=== PATIENT | male | born 1965 | race Caucasian/White ===

== ENCOUNTER → 2016-07-11 | Outpatient (CLI) | payer MEDICAID ==
[2016-07-11 08:21] LABS: Basophils # (A) 0.1 k/uL (0-0.2); Basophils % (A) 1 %; CH 31.1; CHCM 34.1; Eosinophils # (A) 0.4 k/uL (0-0.7); Eosinophils % (A) 4 %; HCT 45.8 % (39.0-53.0); HDW 2.71; HGB 15.2 gm/dL (13.0-17.5); Luc # (Auto) 0.18; Luc % (Auto) 2; Lymphocytes # (A) 1.5 k/uL (1.0-4.8); Lymphocytes % (A) 15 %; MCH 30.5 pg (25.0-35.0); MCHC 33.3 g/dL (31.0-37.0); MCV 91.7 fL (80.0-100.0); Mean Platelet Volume 7.8; Monocytes # (A) 0.4 k/uL (0-1.0); Monocytes % (A) 4 %; Neutrophils # (A) 7.5 k/uL (1.3-7.7); Neutrophils % (A) 74 %; RBC 4.99 m/uL (4.30-5.90); RDW 13.4 % (11.5-15.5); WBC 10.1 k/uL (3.8-10.6); WBC (Perox) 10.33
[2016-07-11 08:42] LABS: ALT 47 U/L (21-72); AST 27 U/L (17-59); Alkaline Phosphatase 78 U/L (38-126); Anion Gap 12 mmol/L; Blood Urea Nitrogen 19 mg/dL (9-20); Calcium 9.7 mg/dL (8.4-10.2); Carbon Dioxide 29 mmol/L (22-30); Chloride 100 mmol/L (98-107); Cholesterol 122 mg/dL (<200); Glucose 148 mg/dL (74-99); HDL Cholesterol 37 mg/dL (40-60); Non-African American GFR(MDRD) >60 (>60 ml/min/1.73 sqM); Potassium 4.5 mmol/L (3.5-5.1); Sodium 141 mmol/L (137-145); Total Bilirubin 0.6 mg/dL (0.2-1.3); Total Protein 7.2 g/dL (6.3-8.2); Triglycerides 117 mg/dL (<150)
[2016-07-11 12:43] LABS: Hemoglobin A1C 7.4 % (4.2-6.1)
== END | disposition home or self-care (01) ==
LOC: LABWHC1 07:35
PROVIDERS: ATTEND Family Medicine
DX: E11.9 Type 2 diabetes mellitus without complications (principal)
CPT/HCPCS: 36415; 80053; 80061; 82043; 83036; 84443; 85025

== ENCOUNTER → 2017-05-12 | Outpatient (CLI) | payer MEDICAID ==
[2017-05-12 10:22] LABS: Basophils % (A) 0 %; CH 32.3; CHCM 35.4; Eosinophils # (A) 0.3 k/uL (0-0.7); Eosinophils % (A) 3 %; HCT 44.2 % (39.0-53.0); HGB 15.1 gm/dL (13.0-17.5); Luc # (Auto) 0.14; Luc % (Auto) 1; Lymphocytes # (A) 1.5 k/uL (1.0-4.8); Lymphocytes % (A) 15 %; MCH 31.3 pg (25.0-35.0); MCHC 34.1 g/dL (31.0-37.0); MCV 91.7 fL (80.0-100.0); Mean Platelet Volume 7.9; Monocytes # (A) 0.5 k/uL (0-1.0); Monocytes % (A) 4 %; Neutrophils # (A) 7.9 k/uL (1.3-7.7); Neutrophils % (A) 76 %; RBC 4.82 m/uL (4.30-5.90); RDW 12.8 % (11.5-15.5); WBC 10.5 k/uL (3.8-10.6); WBC (Perox) 9.67
[2017-05-12 10:48] LABS: ALT 50 U/L (21-72); AST 25 U/L (17-59); Alkaline Phosphatase 86 U/L (38-126); Anion Gap 9 mmol/L; Blood Urea Nitrogen 16 mg/dL (9-20); Calcium 9.5 mg/dL (8.4-10.2); Carbon Dioxide 30 mmol/L (22-30); Chloride 101 mmol/L (98-107); Cholesterol 156 mg/dL (<200); Glucose 159 mg/dL (74-99); HDL Cholesterol 47 mg/dL (40-60); Non-African American GFR(MDRD) >60 (>60 ml/min/1.73 sqM); Potassium 3.8 mmol/L (3.5-5.1); Sodium 140 mmol/L (137-145); Total Bilirubin 0.7 mg/dL (0.2-1.3); Total Protein 6.6 g/dL (6.3-8.2)
[2017-05-12 11:08] LABS: Appearance,Urine Clear (Clear); Bilirubin,Urine Negative (Negative); Glucose,Urine (UA) Negative (Negative); Ketones,Urine Negative (Negative); Leukocyte Esterase,Urine Negative (Negative); Mucus,Urine Few /hpf; Nitrite,Urine Negative (Negative); PH, Urine 5.5 (5.0-8.0); Particle Count 3747; Protein,Urine Trace (Negative); RBC,Urine 23 /hpf (0-5); Specific Gravity,Urine 1.021 (1.001-1.035); UA Billing (MACRO vs. MICRO) MICRO; Urobilinogen,Urine <2.0 mg/dL (<2.0); WBC,Urine 1 /hpf (0-5)
[2017-05-12 11:18] LABS: Prostate Specific Antigen 0.25 ng/mL (0.00-4.00)
[2017-05-12 15:49] LABS: Urine Creatinine 245.6 mg/dL
== END | disposition home or self-care (01) ==
LOC: LABWHC1 09:52
PROVIDERS: ATTEND Family Medicine
DX: Z00.00 Encounter for general adult medical examination without abnormal findings (principal); E11.9 Type 2 diabetes mellitus without complications
CPT/HCPCS: 36415; 80053; 80061; 81001; 82043; 82570; 83036; 84153; 84443; 85025

== ENCOUNTER → 2018-01-06 | Outpatient (CLI) | payer MEDICAID ==
--- NOTE | 2018-01-07 09:11 | CT ---
EXAMINATION TYPE: CT abdomen pelvis wo con DATE OF EXAM: 01/06/2018 HISTORY: Pre OP skin removal per patient. Abdominal and pelvic pain per order (R 10.9). CT DLP: 2899.2 mGycm. Automated Exposure Control for Dose Reduction was Utilized. TECHNIQUE: CT scan of the abdomen and pelvis is performed with oral but without IV contrast. COMPARISON: Prior CT abdomen pelvis August 06, 2013 FINDINGS: Within the limitations of a non-contrast study, the following observations are made. LUNG BASES: Focal linear scarring or atelectasis in the lingula axial image 11 is noted. LIVER/GB: Liver is diffusely low dense consistent with fatty infiltration. Somewhat contracted gallbl adder is noted. PANCREAS: Mild to moderate fat replaced atrophy at the level of the pancreatic head is present SPLEEN: No significant abnormality is seen. ADRENALS: No significant abnormality is seen. KIDNEYS: No renal calculi or hydronephrosis is evident bilaterally. BOWEL: The oral contrast does not reach level of terminal ileum. There is no suspicious small or larg e bowel dilatation seen. GENITAL ORGANS: No gross abnormality seen. LYMPH NODES: No greater than 1cm abdominal or pelvic lymph nodes are appreciated. OSSEOUS STRUCTURES: There is moderate multilevel spurring in the thoracolumbar spine. There is facet arthropathy with spur disc complexes effacing anterior thecal sac mid to lower lumbar levels. OTHER: There is curvilinear density from prior ventral wall hernia repair surgery overlying anterior abdominal wall. No recurrent hernia is evident. Vertical scarring is noted inferiorly over the pelvis . There is small fat-containing left inguinal hernia axial image 96. There are numerous surgical clips along course of the mid to distal abdominal aorta extending along r ight common iliac artery. IMPRESSION: There is evidence of prior surgery without suspicious recurrent ventral wall hernia.
== END | disposition home or self-care (01) ==
LOC: RADCTMAIN 17:55
PROVIDERS: ATTEND Surgery Plastic and Reconstructive Surgery
DX: R10.2 Pelvic and perineal pain (principal); R10.9 Unspecified abdominal pain; Z98.890 Other specified postprocedural states
CPT/HCPCS: 74176

== ENCOUNTER → 2018-02-03 | Outpatient (CLI) | payer MEDICAID ==
[2018-02-03 15:16] VITALS: BP 115/71; PULSE 57; RESP 16; TEMP 97.9; BMI 48.6
--- NOTE | 2018-02-03 15:20 | P.HPBAR ---
Bariatric H&P - History & Physicial H&P Date: 02/03/18 History & Physicial: Visit/CC: Patient initial contact: Initial weight: Initial weight in pounds: Height: Initial BMI: Last weight: Current weight: Current weight in pounds: Current BMI: [place] body weight (based on NIH guidelines): Excess body weight loss: The patient is a 52 year-old M who presents for Bariatric Assessment. HPI: He reports his highest weight of 365 pounds. He reports severe panniculitis. He comes in with insulin dependent diabetes, sleep apnea and hypertensive heart disease. He has history of multiple abdominal surgeries. He has past history of gastroesophageal reflux. ABDOMEN: Has multiple scarring along the abdomen. PLAN: 1. Bariatric labs advised 2. Psych assement pending 3. All bariatric options reviewed. He has history of scar severe scar tissue and may benefit from scar 4. CT of the abdomen pelvis Past Medical History Past Medical History: Cancer, Diabetes Mellitus, Hyperlipidemia, Hypertension, Sleep Apnea/CPAP/BIPAP Additional Past Medical History / Comment(s): Rt testicular cancer History of Any Multi-Drug Resistant Organisms: None Reported, MRSA Year Discovered:: None MDRO Source:: None Past Surgical History: Hernia Repair Additional Past Surgical History / Comment(s): 08/2013 Exploratory lap with lysis of adhesions, ventral hernia repair with mesh, excisional abdominal wall flap necrosis with wound vac and debridements, Radical orchiectomy with retroperitoneal lymph node dissection Past Anesthesia/Blood Transfusion Reactions: No Reported Reaction Additional Past Anesthesia/Blood Transfusion Reaction / Comm: Pt has never received blood. Past Psychological History: No Psychological Hx Reported Additional Psychological History / Comment(s): , works local [employer]. Participated in the local [employer] play. No current tobacco use. No alcohol use. No recent animal exposures. No experience. No recent travels. Last international travel was last year when he got in the [place]. The other wetting occurred this summer in town Smoking Status: Former smoker Past Alcohol Use History: Occasional Additional Past Alcohol Use History / Comment(s): pt quit 6 weeks ago Past Drug Use History: None Reported - Past Family History Father Family Medical History: Diabetes Mellitus, Osteoarthritis (OA) Additional Family Medical History / Comment(s): Father had war wounds, knee replacement, hernias. He at age 90yrs. Mother Family Medical History: Cancer Additional Family Medical History / Comment(s): Mother had breast cancer. She at age 86 yrs. Bariatric Checklist Checklist: Plan: Checklist: EGD: 1. Hiatal hernia: 2. H. Pylori: HgbA1c: Vitamin D: Smoking: Former smoker Primary care physician referral: Psychiatry clearance: Cardiology clearance: Sleep study: Diet journal: VTE risk score: VTE risk level: Rehab needs at discharge:
[2018-02-03 16:47] LABS: HCT 42.6 % (39.0-53.0); HGB 14.5 gm/dL (13.0-17.5); MCH 30.9 pg (25.0-35.0); MCV 90.9 fL (80.0-100.0); Mean Platelet Volume 8.4; Platelet Count 232 k/uL (150-450); RBC 4.68 m/uL (4.30-5.90); RDW 12.5 % (11.5-15.5); WBC 8.9 k/uL (3.8-10.6)
[2018-02-03 17:01] LABS: ALT 48 U/L (21-72); AST 31 U/L (17-59); Albumin 3.9 g/dL (3.5-5.0); Alkaline Phosphatase 70 U/L (38-126); Anion Gap 9 mmol/L; Blood Urea Nitrogen 20 mg/dL (9-20); Calcium 9.4 mg/dL (8.4-10.2); Carbon Dioxide 28 mmol/L (22-30); Chloride 102 mmol/L (98-107); Cholesterol 172 mg/dL (<200); Glucose 112 mg/dL (74-99); HDL Cholesterol 39 mg/dL (40-60); LDL Cholesterol,Calculated 100 mg/dL (0-99); Potassium 4.2 mmol/L (3.5-5.1); Sodium 139 mmol/L (137-145); Total Bilirubin 0.6 mg/dL (0.2-1.3); Total Protein 7.1 g/dL (6.3-8.2); Triglycerides 166 mg/dL (<150)
[2018-02-04 03:38] LABS: Iron Saturation 31.04 (15.00-50.00)
[2018-02-04 04:18] LABS: Hemoglobin A1C 7.1 % (4.0-6.0)
[2018-02-04 04:35] LABS: Folate, Serum 22.1 ng/mL; Vitamin D 25 Hydroxy 13.5 ng/mL (30.0-100.0)
== END | disposition home or self-care (01) ==
LOC: BARWHC3 13:40
PROVIDERS: ATTEND Surgery Plastic and Reconstructive Surgery
DX: M79.3 Panniculitis, unspecified (principal); E11.9 Type 2 diabetes mellitus without complications; G47.30 Sleep apnea, unspecified; I11.9 Hypertensive heart disease without heart failure; E89.1 Postprocedural hypoinsulinemia; E88.81 Metabolic syndrome and other insulin resistance; D50.9 Iron deficiency anemia, unspecified; E44.0 Moderate protein-calorie malnutrition; E55.9 Vitamin D deficiency, unspecified; E66.01 Morbid (severe) obesity due to excess calories; Z68.42 Body mass index [BMI] 45.0-49.9, adult; Z79.4 Long term (current) use of insulin; Z87.891 Personal history of nicotine dependence; Z98.890 Other specified postprocedural states
CPT/HCPCS: 36415; 80053; 80061; 80323; 82306; 82607; 82728; 82746; 83036; 83540; 83550; 84425; 84443; 85027; 93005; 99201

== ENCOUNTER → 2018-04-19 | Outpatient (CLI) | payer MEDICAID ==
[2018-04-19 11:27] LABS: HCT 44.3 % (39.0-53.0); HGB 14.6 gm/dL (13.0-17.5); MCH 30.1 pg (25.0-35.0); MCHC 32.9 g/dL (31.0-37.0); MCV 91.6 fL (80.0-100.0); Mean Platelet Volume 7.7; Platelet Count 252 k/uL (150-450); RBC 4.83 m/uL (4.30-5.90); RDW 12.7 % (11.5-15.5)
[2018-04-19 16:28] LABS: Albumin 4.1 g/dL (3.80-4.90); Albumin/Globulin Ratio 1.95 (1.20-2.10); Anion Gap 6.8 mmol/L (4.00-12.00); Calcium 9.3 mg/dL (8.7-10.3); Carbon Dioxide 29.2 mmol/L (21.6-31.8); Globulin 2.1 g/dL (2.1-3.7); LDL Cholesterol,Calculated 80.6 mg/dL (0.0-131.0); Potassium 4.5 mmol/L (3.5-5.5); Total Bilirubin 0.6 mg/dL (0.3-1.2); Total Protein 6.2 g/dL (6.2-8.2); VLDL Calculation 16.4 mg/dL (5.00-40.00)
[2018-04-19 23:36] LABS: Hemoglobin A1C 7.2 % (4.0-6.0)
== END | disposition home or self-care (01) ==
LOC: LABWHC1 10:09
PROVIDERS: ATTEND Family Medicine
DX: Z00.00 Encounter for general adult medical examination without abnormal findings (principal); E11.65 Type 2 diabetes mellitus with hyperglycemia
CPT/HCPCS: 36415; 80053; 80061; 83036; 84153; 85027

== ENCOUNTER 2018-04-21 10:23 | Day surgery (SDC) | payer MEDICAID ==
[2018-04-20 10:01] VITALS: BMI 48.0
--- NOTE | 2018-04-21 08:48 | P.GSHP ---
History of Present Illness H&P Date: 04/21/18 CHIEF COMPLAINT: GERD HISTORY OF PRESENT ILLNESS: The patient is a 53-year-old male who presents reports gastroesophageal reflux disease. Upper endoscopy was offered for further evaluation and management. PAST MEDICAL HISTORY: Please see list. PAST SURGICAL HISTORY: Please see list. MEDICATIONS: Please see list. ALLERGIES: Please see list. SOCIAL HISTORY: No illicit drug use FAMILY HISTORY: No reports of Crohn disease or ulcerative colitis. REVIEW OF ORGAN SYSTEMS: CONSTITUTIONAL: No reports of fevers or chills. GI: Denies any blood in stools or constipation. PHYSICAL EXAM: VITAL SIGNS: Stable GENERAL: Well-developed and pleasant in no acute distress. HEENT: No scleral icterus. Extraocular movements grossly intact. Moist buccal mucosa. NECK: Supple without lymphadenopathy. CHEST: Unlabored respirations. Equal bilateral excursions. CARDIOVASCULAR: Regular rate and rhythm. Distal 2+ pulses. ABDOMEN: Soft, nondistended. MUSCULOSKELETAL: No clubbing, cyanosis, or edema. ASSESSMENT: 1. Gastroesophageal reflux disease PLAN: 1. Recommend proceeding with an upper endoscopy Past Medical History Past Medical History: Cancer, Diabetes Mellitus, Hyperlipidemia, Hypertension, Sleep Apnea/CPAP/BIPAP Additional Past Medical History / Comment(s): Rt testicular cancer History of Any Multi-Drug Resistant Organisms: None Reported, MRSA Date of last positivie culture/infection: None MDRO Source:: None Past Surgical History: Hernia Repair Additional Past Surgical History / Comment(s): 08/2013 Exploratory lap with lysis of adhesions, ventral hernia repair with mesh, excisional abdominal wall flap necrosis with wound vac and debridements, Radical orchiectomy with retroperitoneal lymph node dissection Past Anesthesia/Blood Transfusion Reactions: No Reported Reaction Additional Past Anesthesia/Blood Transfusion Reaction / Comment(s): Pt has never received blood. Smoking Status: Former smoker - Past Family History Father Family Medical History: Diabetes Mellitus, Osteoarthritis (OA) Additional Family Medical History / Comment(s): Father had war wounds, knee replacement, hernias. He at age 90yrs. Mother Family Medical History: Cancer Additional Family Medical History / Comment(s): Mother had breast cancer. Medications and Allergies Home Medications Medication Instructions Recorded Confirmed Type Aspirin EC [Ecotrin Low Dose] 81 mg PO DAILY 04/30/16 04/20/18 History Lisinopril [Zestril] 2.5 mg PO DAILY 04/30/16 04/20/18 History metFORMIN HCL [Glucophage] 1,000 mg PO BID #60 tab 05/05/16 04/20/18 Rx Atorvastatin Calcium [Lipitor] 20 mg PO HS 04/20/18 04/20/18 History Citalopram Hydrobromide [CeleXA] 20 mg PO HS 04/20/18 04/20/18 History Furosemide [Lasix] 10 mg PO DAILY 04/20/18 04/20/18 History Insulin Glargine [Lantus] 43 unit SQ HS 04/20/18 04/20/18 History Insulin Lispro [humaLOG Kwikpen] 7 unit SQ AC-TID 04/20/18 04/20/18 History Vitamin B Complex 1 each PO DAILY 04/20/18 04/20/18 History Allergies Allergy/AdvReac Type Severity Reaction Status Date / Time No Known Allergies Allergy Verified 04/20/18 09:22
[~2018-04-21 10:23] MED LIST: LACTATED RINGERS 1,000 ML IV SCH; LIDOCAINE 1% 20 ML VIAL (10MG/ML) FOR IV START INTRADERMA PRN
[2018-04-21 11:05] VITALS: TEMP 97.8
[2018-04-21] MEDS ORDERED: PROPOFOL 10 MG/ML 20 ML VIAL IV ONE (11:22)
[2018-04-21 11:23] LABS: Glucose,Whole Blood 162 mg/dL (75-99)
--- NOTE | 2018-04-21 11:44 | P.OP ---
Date of Procedure: 04/21/18 Description of Procedure: PREOPERATIVE DIAGNOSIS: Gastroesophageal reflux disease. Morbid obesity. POSTOPERATIVE DIAGNOSIS: Morbid obesity. Gastritis. Duodenitis Esophagitis Gastroesophageal reflux disease. Diaphragmatic hiatal hernia OPERATION: Esophagogastroduodenoscopy with biopsies along antrum, duodenum, and distal esophagus SURGEON: Betty Escobar MD ANESTHESIA: MAC. INDICATIONS: The patient is a 53-year-old male who presents with a history of reflux disease. Benefits and risks of the procedure were described. Informed consent was obtained. DESCRIPTION: The patient was brought into the endoscopy suite and laid in the left lateral decubitus position. An Olympus gastroscope was passed along the posterior oropharynx down to the distal esophagus where the squamocolumnar junction was encountered at 38 cm from the incisors. The stomach was entered and no bile reflux was found. Additional findings are listed below. Biopsies with cold forceps were obtained of the antrum. The first through third portion of the duodenum was examined and unremarkable. Retroflexion of the scope confirmed Hill grade 3 lower esophageal valve. The squamocolumnar junction demonstrated LA grade D erosive esophagitis. The stomach was desufflated. The patient tolerated the procedure well. FINDINGS: Squamocolumnar junction 38 cm from the incisors. Diaphragmatic hiatus at 40 cm. Hiatal hernia, 2 cm Hill grade 3 lower esophageal valve. LA grade D erosive esophagitis. Active duodenitis. Chronic gastritis RECOMMENDATIONS: Upper endoscopy in 3 years, 2020 for esophagitis Plan - Discharge Summary New Discharge Prescriptions: New Omeprazole 40 mg PO DAILY #14 capsule.dr No Action Aspirin EC [Ecotrin Low Dose] 81 mg PO DAILY Lisinopril [Zestril] 2.5 mg PO DAILY metFORMIN HCL [Glucophage] 1,000 mg PO BID #60 tab Insulin Lispro [humaLOG Kwikpen] 7 unit SQ AC-TID Insulin Glargine [Lantus] 43 unit SQ HS Atorvastatin Calcium [Lipitor] 20 mg PO HS Furosemide [Lasix] 10 mg PO DAILY Citalopram Hydrobromide [CeleXA] 20 mg PO HS Vitamin B Complex 1 each PO DAILY Discharge Medication List Aspirin EC [Ecotrin Low Dose] 81 mg PO DAILY 04/30/16 [History] Lisinopril [Zestril] 2.5 mg PO DAILY 04/30/16 [History] metFORMIN HCL [Glucophage] 1,000 mg PO BID #60 tab 05/05/16 [Rx] Atorvastatin Calcium [Lipitor] 20 mg PO HS 04/20/18 [History] Citalopram Hydrobromide [CeleXA] 20 mg PO HS 04/20/18 [History] Furosemide [Lasix] 10 mg PO DAILY 04/20/18 [History] Insulin Glargine [Lantus] 43 unit SQ HS 04/20/18 [History] Insulin Lispro [humaLOG Kwikpen] 7 unit SQ AC-TID 04/20/18 [History] Vitamin B Complex 1 each PO DAILY 04/20/18 [History] Omeprazole 40 mg PO DAILY #14 capsule. 04/21/18 [Rx] Follow up Appointment(s)/Referral(s): [facility] [NON-STAFF] - 05/26/18 Patient Instructions/Handouts: *[facility] - (Anesthesia) Endoscopy Discharge Instructions, Upper Endoscopy (DC), Duodenitis (DC), Gastritis (DC), Diet for Stomach Ulcers and Gastritis (ED) Discharge Disposition: HOME SELF-CARE
[2018-04-21 11:46] VITALS: RESP 18
[2018-04-21 12:00] VITALS: BP 115/70; PULSE 50
== END 2018-04-21 12:36 | disposition home or self-care (01) ==
LOC: ORWHC2ENDO 10:23
PROVIDERS: ATTEND Surgery Plastic and Reconstructive Surgery
DX: K29.50 Unspecified chronic gastritis without bleeding (principal); K29.80 Duodenitis without bleeding; K21.0 Gastro-esophageal reflux disease with esophagitis; K22.10 Ulcer of esophagus without bleeding; K44.9 Diaphragmatic hernia without obstruction or gangrene; E66.01 Morbid (severe) obesity due to excess calories; Z68.42 Body mass index [BMI] 45.0-49.9, adult; E11.9 Type 2 diabetes mellitus without complications; E78.5 Hyperlipidemia, unspecified; I10 Essential (primary) hypertension; F32.9 Major depressive disorder, single episode, unspecified; G47.33 Obstructive sleep apnea (adult) (pediatric); Z99.89 Dependence on other enabling machines and devices; Z79.82 Long term (current) use of aspirin; Z79.4 Long term (current) use of insulin; Z79.899 Other long term (current) drug therapy; Z90.79 Acquired absence of other genital organ(s); Z85.47 Personal history of malignant neoplasm of testis; Z86.14 Personal history of Methicillin resistant Staphylococcus aureus infection; Z87.891 Personal history of nicotine dependence
CPT/HCPCS: 88305; 43239; J2704

== ENCOUNTER → 2018-05-26 | Outpatient (CLI) | payer MEDICAID ==
--- NOTE | 2018-05-26 15:40 | P.PN ---
Subjective Progress Note Date: 05/26/18 DATE OF SERVICE: 05/26/2018 CHIEF COMPLAINT: Bariatric evaluation. HISTORY OF PRESENT ILLNESS: Clint Valle is a 53-year-old male who comes in with long-standing morbid obesity. He comes in looking into weight loss surgery. He is looking into surgery to help his diabetes. He has history of multiple abdominal surgeries. At height of 5 feet 9.5 inches, his ideal body weight is 168 pounds. He comes in 336 pounds from 334 pounds, 3 months. He gained 2 pounds in 4 months. His highest weight was 365 pounds. His body mass index highest was 53.2 down to 49.1. He is 168 pounds overweight. PAST MEDICAL HISTORY: 1. Morbid obesity due to excess calories 2. Body mass index of 53.2, initial 3. Osteoarthritis of the knees. 4. Osteoarthritis of the lower back. 5. Hypertensive heart disease. 6. Gastroesophageal reflux disease 7. Hyperlipidemia 8. Obstructive sleep apnea 9. Testicular cancer 10. Panniculitis 11. Diabetes type 2, insulin-dependent PAST SURGICAL HISTORY: 1. Exploratory laparotomy lysis of adhesions 2. Complex abdominal wall reconstruction 3. Orchiectomy lymphadenectomy HOME MEDICATIONS: ALLERGIES: Home Medications Medication Instructions Recorded Confirmed Type Aspirin EC [Ecotrin Low Dose] 81 mg PO DAILY 04/30/16 02/04/18 History Lisinopril [Zestril] 2.5 mg PO DAILY 04/30/16 02/04/18 History Atorvastatin Calcium [Lipitor] 20 mg PO DAILY #30 tab 05/05/16 02/04/18 Rx Cefuroxime Axetil [Ceftin] 500 mg PO BID #14 tab 05/05/16 02/04/18 Rx INSULIN LISPRO (humaLOG) [humaLOG] 6 unit SQ AC-TID #1 vial 05/05/16 02/04/18 Rx Insulin Glargine [Lantus] 24 unit SQ HS #1 vial 05/05/16 02/04/18 Rx Nystatin 100,000Unit/gm Cream 1 applic TOPICAL TID applic 05/05/16 02/04/18 Rx [Mycostatin Cream] SILVER sulfADIAZINE Cream 1 applic TOPICAL BID applic 05/05/16 02/04/18 Rx [Silvadene 1% Cream] metFORMIN HCL [Glucophage] 1,000 mg PO BID #60 tab 12/19/16 09/20/18 Rx Allergies Allergy/AdvReac Type Severity Reaction Status Date / Time No Known Allergies Allergy Verified 02/04/18 10:05 SOCIAL HISTORY: Past tobacco use. FAMILY HISTORY: No family history of ulcerative colitis disease or Crohn's disease. Family history of morbid obesity. No lupus in the family. No reports of stomach or esophageal cancer. Has family history of diabetes REVIEW OF ORGAN SYSTEMS: CONSTITUTIONAL: At height of 5 feet 9.5 inches, his ideal body weight is 168 pounds. He comes in 338 pounds. His highest weight was 365 pounds. His body mass index highest was 53.2. Today his BMI is 48.7. He is 166 pounds overweight. HEENT: Denies any active troubles with vision or hearing. No troubles with swallowing. ENDOCRINE: Has diabetes. No hypothyroidism. CARDIOVASCULAR: No reports of palpitations or heart attacks or chest pain. RESPIRATORY: Has daytime somnolence. No asthma. GI: Denies any bright red blood per rectum. No diarrhea. No constipation. MUSCULOSKELETAL: Has lower back pain and joint pain. Has osteoarthritis of the knees. NEURO: No headaches. No seizure disorders. PSYCH: No depression. No suicidal ideation. RHEUMATOLOGIC: No lupus. No rheumatoid arthritis. HEMATOLOGIC: Denies any abnormal bleeding or bruising. No personal history of DVTs. SKIN: No rash. No skin cancer. Has panniculitis PHYSICAL EXAM: VITAL SIGNS: Height 5 foot 9.5 inches, weight 336 pounds. BMI 49.1 Vital Signs Temp 97.4 F L 05/26/18 15:00 Pulse 60 05/26/18 15:00 Resp BP 118/75 05/26/18 15:00 Pulse Ox GENERAL: Well-developed in no acute distress. HEENT: No scleral icterus. Extraocular movements grossly intact. Hears conversational speech. No nasal drainage. NECK: Supple without lymphadenopathy. CHEST: Nonlabored respirations with equal bilateral excursions. CARDIOVASCULAR: Regular rate and regular rhythm. Distal 2+ pulses. ABDOMEN: Has multiple scarring along the abdomen. Soft, nontender, nondistended. Has moderate-sized pannus. Midline incision MUSCULOSKELETAL: No clubbing, cyanosis. Gross strength 5/5 distal lower extremities. NEURO: No focal or lateralizing signs. Cranial nerves 2 through 12 grossly within normal limits. PSYCH: Appropriate affect. Alert and oriented to person, place and time. SKIN: Good skin turgor. Well perfused. LABS: Reviewed Hgb A1C less than 8.0 EGD STUDIES FINDINGS: Squamocolumnar junction 38 cm from the incisors. Diaphragmatic hiatus at 40 cm. Hiatal hernia, 2 cm Hill grade 3 lower esophageal valve. LA grade D erosive esophagitis. Active duodenitis. Chronic gastritis Final Pathologic Diagnosis A. GASTRIC ANTRUM, BIOPSY: Mild chronic gastritis. Helicobacter pylori organisms are not identified on routine H+E sections. B. DISTAL ESOPHAGUS, BIOPSY: Benign glandular mucosa with intestinal metaplasia, chronic inflammation and mucosal reactive changes. Negative for dysplasia. See note. C. DUODENUM, BIOPSY: Chronic duodenitis with mild villous atrophy. ASSESSMENT: 1. Morbid obesity due to excess calories 2. Body mass index of 53.2, initial 3. Osteoarthritis of the knees. 4. Osteoarthritis of the lower back. 5. Hypertensive heart disease. 6. Gastroesophageal reflux disease 7. Hyperlipidemia 8. Obstructive sleep apnea 9. Testicular cancer 10. Panniculitis 11. Diabetes type 2, insulin-dependent PLAN: 1. Upper endoscopy reviewed demonstrating moderate reflux. His reports improvement of his symptoms with Omeprazole 2. He is looking into the gastric bypass however a sleeve is preferred with the multiple abdominal surgeries. 3. He is pending cardiac clearance and seeing a trimmer machine 4. Continue with Omeprazole 5. He is at high risk for scar tissue and lysis of adhesions were described. 6. Labs were also reviewed.
[2018-05-28 14:49] VITALS: BP 118/75; PULSE 60; TEMP 97.4; BMI 49.0
== END | disposition home or self-care (01) ==
LOC: BARWHC3 13:37
PROVIDERS: ATTEND Surgery Plastic and Reconstructive Surgery
DX: E66.01 Morbid (severe) obesity due to excess calories (principal); M17.0 Bilateral primary osteoarthritis of knee; I11.9 Hypertensive heart disease without heart failure; K21.9 Gastro-esophageal reflux disease without esophagitis; E78.5 Hyperlipidemia, unspecified; G47.33 Obstructive sleep apnea (adult) (pediatric); C62.90 Malignant neoplasm of unspecified testis, unspecified whether descended or undescended; E11.9 Type 2 diabetes mellitus without complications; M79.3 Panniculitis, unspecified; Z79.4 Long term (current) use of insulin; Z79.82 Long term (current) use of aspirin; Z79.899 Other long term (current) drug therapy; Z79.84 Long term (current) use of oral hypoglycemic drugs; Z79.2 Long term (current) use of antibiotics; Z68.43 Body mass index [BMI] 50.0-59.9, adult; Z72.0 Tobacco use
CPT/HCPCS: 99211

== ENCOUNTER 2018-08-30 01:37 | Emergency (ER) | payer MEDICAID ==
[2018-08-30 01:44] VITALS: TEMP 98.2
[2018-08-30] MEDS ORDERED: MORPHINE SULFATE 4 MG/ML SYRINGE IV STA (02:02)
[2018-08-30] MEDS ORDERED: ONDANSETRON 4 MG/2 ML VIAL IVP STA (02:02)
--- NOTE | 2018-08-30 02:48 | ED ---
General Adult HPI - General Source: patient, family, RN notes reviewed Mode of arrival: ambulatory Limitations: no limitations <Wili Hua - Last Filed: 08/30/18 04:16> <Halie Booth - Last Filed: 08/30/18 05:56> - General Chief complaint: Abdominal Pain Stated complaint: Abdominal Pain Time Seen by Provider: 08/30/18 01:52 - History of Present Illness Initial comments: 53-year-old male with a past medical history of testicular cancer, diabetes mellitus, hyperlipidemia, hypertension, multiple abdominal surgeries presents to the emergency determine for chief complaint of upper abdominal pain. Patient states this pain started across his back a few hours ago and now is in his upper abdomen. States this feels exactly how it feels when he develops a hernia which he has expressed multiple times before. Patient did vomit 3 times as well. Patient has no other complaints at this time including shortness of breath, chest pain, headache, or visual changes. (Wili Hua) I was available for consultation in the emergency department. The history and physical exam were done by the midlevel provider. I was consulted for this patient's care. I reviewed the case with the midlevel provider and based on their presentation of the patient, I agree with the assessment, medical decision making and plan of care as documented. (Halie Booth) - Related Data Home Medications Medication Instructions Recorded Confirmed Aspirin EC [Ecotrin Low Dose] 81 mg PO DAILY 04/30/16 05/26/18 Lisinopril [Zestril] 2.5 mg PO DAILY 04/30/16 05/26/18 Atorvastatin Calcium [Lipitor] 20 mg PO HS 04/20/18 05/26/18 Citalopram Hydrobromide [CeleXA] 20 mg PO HS 04/20/18 05/26/18 Furosemide [Lasix] 10 mg PO DAILY 04/20/18 05/26/18 Insulin Glargine [Lantus] 43 unit SQ HS 04/20/18 05/26/18 Insulin Lispro [humaLOG Kwikpen] 7 unit SQ AC-TID 04/20/18 05/26/18 Vitamin B Complex 1 each PO DAILY 04/20/18 05/26/18 Previous Rx's Medication Instructions Recorded metFORMIN HCL [Glucophage] 1,000 mg PO BID #60 tab 05/05/16 Omeprazole 40 mg PO DAILY #14 capsule. 04/21/18 HYDROcodone/APAP 5-325MG [[place] 1 tab PO Q6HR PRN #10 tab 08/30/18 5-325] Ondansetron [Zofran ODT] 4 mg PO Q8HR PRN #15 tab 08/30/18 Tamsulosin [Flomax] 0.4 mg PO DAILY #10 cap 08/30/18 Allergies Allergy/AdvReac Type Severity Reaction Status Date / Time No Known Allergies Allergy Verified 08/30/18 01:44 Review of Systems ROS Other: All systems not noted in ROS Statement are negative. <Wili Hua P - Last Filed: 08/30/18 04:16> ROS Other: All systems not noted in ROS Statement are negative. <Halie Booth P - Last Filed: 08/30/18 05:56> ROS Statement: Those systems with pertinent positive or pertinent negative responses have been documented in the HPI. Past Medical History Past Medical History: Cancer, Diabetes Mellitus, Hyperlipidemia, Hypertension, Sleep Apnea/CPAP/BIPAP Additional Past Medical History / Comment(s): Rt testicular cancer History of Any Multi-Drug Resistant Organisms: None Reported, MRSA Date of last positivie culture/infection: None MDRO Source:: None Past Surgical History: Hernia Repair Additional Past Surgical History / Comment(s): 08/2013 Exploratory lap with lysis of adhesions, ventral hernia repair with mesh, excisional abdominal wall flap necrosis with wound vac and debridements, Radical orchiectomy with retroperitoneal lymph node dissection Past Anesthesia/Blood Transfusion Reactions: No Reported Reaction Additional Past Anesthesia/Blood Transfusion Reaction / Comment(s): Pt has never received blood. Past Psychological History: No Psychological Hx Reported Smoking Status: Former smoker Past Alcohol Use History: Occasional Past Drug Use History: None Reported - Past Family History Father Family Medical History: Diabetes Mellitus, Osteoarthritis (OA) Additional Family Medical History / Comment(s): Father had war wounds, knee replacement, hernias. He at age 90yrs. Mother Family Medical History: Cancer Additional Family Medical History / Comment(s): Mother had breast cancer. <Wili Hua P - Last Filed: 08/30/18 04:16> General Exam Limitations: no limitations General appearance: alert, in no apparent distress Head exam: Present: atraumatic, normocephalic, normal inspection Eye exam: Present: normal appearance, PERRL, EOMI. Absent: scleral icterus, conjunctival injection, periorbital swelling ENT exam: Present: normal exam, mucous membranes moist Neck exam: Present: normal inspection, full ROM. Absent: tenderness, meningismus, lymphadenopathy Respiratory exam: Present: normal lung sounds bilaterally. Absent: respiratory distress, wheezes, rales, rhonchi, stridor Cardiovascular Exam: Present: regular rate, normal rhythm, normal heart sounds. Absent: systolic murmur, diastolic murmur, rubs, gallop, clicks GI/Abdominal exam: Present: soft, tenderness (Minimal generalized upper abdominal tenderness), normal bowel sounds. Absent: distended, guarding, rebound, rigid Back exam: Absent: CVA tenderness (R), CVA tenderness (L) Neurological exam: Present: alert, oriented X3, CN II-XII intact Psychiatric exam: Present: normal affect, normal mood <Wili Hua P - Last Filed: 08/30/18 04:16> Course <Wili Hua P - Last Filed: 08/30/18 04:16> Vital Signs 08/30/18 08/30/18 01:41 04:08 Temperature 98.2 F Pulse Rate 71 66 Respiratory 24 17 Rate Blood Pressure 177/95 123/66 O2 Sat by Pulse 96 96 Oximetry - Reevaluation(s) Reevaluation #1: 08/30/18 03:55 Patient reevaluated at this time, stating his pain is completely resolved. Patient is feeling much better, does not want any additional pain medication. (Wili Hua) Medical Decision Making - Lab Data Result diagrams: 08/30/18 02:30 08/30/18 02:30 <Wili Hua P - Last Filed: 08/30/18 04:16> - Lab Data Result diagrams: 08/30/18 02:30 08/30/18 02:30 <Halie Booth P - Last Filed: 08/30/18 05:56> - Medical Decision Making 53-year-old male presents to the emergency department for chief back pain and abdominal pain. Patient states this started as a back pain in the center his back and then became and abdominal pain. Patient has had extensive abdominal surgeries. Minimal abdominal tenderness on exam. No CVA tenderness. CBC unremarkable. CMP does show a creatinine of 1.3, patient given fluids. Patient does have a glucose of 271, history of diabetes. CT abdomen and pelvis shows a left distal ureteral 5 mm calculus with mild to moderate left hydroureter or hydronephrosis and delayed nephrogram. Mild left perinephric stranding/edema may be related to calculus although recommended clinical correlation in correlation with urinalysis. Urinalysis has moderate blood however no evidence of infection. Patient will be given perception of her pain medicine as well as Zofran and Flomax. Will follow up with urology in 1-2 days. Discussed return parameters including intractable pain or inability to tolerate by mouth intake. (Wili Hua) - Lab Data Lab Results 08/30/18 08/30/18 08/30/18 Range/Units 02:30 02:30 02:30 WBC 10.1 (3.8-10.6) k/uL RBC 5.02 (4.30-5.90) m/uL Hgb 15.0 (13.0-17.5) gm/dL Hct 44.4 (39.0-53.0) % MCV 88.5 (80.0-100.0) fL MCH 30.0 (25.0-35.0) pg MCHC 33.9 (31.0-37.0) g/dL RDW 12.7 (11.5-15.5) % Plt Count 232 (150-450) k/uL Neutrophils % 75 % Lymphocytes % 14 % Monocytes % 6 % Eosinophils % 3 % Basophils % 0 % Neutrophils # 7.6 (1.3-7.7) k/uL Lymphocytes # 1.4 (1.0-4.8) k/uL Monocytes # 0.6 (0-1.0) k/uL Eosinophils # 0.3 (0-0.7) k/uL Basophils # 0.0 (0-0.2) k/uL PT (9.0-12.0) sec INR (<1.2) APTT (22.0-30.0) sec Sodium 138 (137-145) mmol/L Potassium 4.3 (3.5-5.1) mmol/L Chloride 101 (98-107) mmol/L Carbon Dioxide 29 (22-30) mmol/L Anion Gap 8 mmol/L BUN 21 H (9-20) mg/dL Creatinine 1.34 H (0.66-1.25) mg/dL Est GFR (CKD-EPI)AfAm 71 (>60 ml/min/1.73 sqM) Est GFR (CKD-EPI)NonAf 61 (>60 ml/min/1.73 sqM) Glucose 271 H (74-99) mg/dL Plasma Lactic Acid Trey 1.4 (0.7-2.0) mmol/L Calcium 9.5 (8.4-10.2) mg/dL Magnesium 1.6 (1.6-2.3) mg/dL Total Bilirubin 0.4 (0.2-1.3) mg/dL AST 26 (17-59) U/L ALT 41 (21-72) U/L Alkaline Phosphatase 98 (38-126) U/L Troponin I (0.000-0.034) ng/mL Total Protein 6.9 (6.3-8.2) g/dL Albumin 4.0 (3.5-5.0) g/dL Amylase 63 (30-110) U/L Lipase 125 (23-300) U/L Urine Color Urine Appearance (Clear) Urine pH (5.0-8.0) Ur Specific [place] (1.001-1.035) Urine Protein (Negative) Urine Glucose (UA) (Negative) Urine Ketones (Negative) Urine Blood (Negative) Urine Nitrite (Negative) Urine Bilirubin (Negative) Urine Urobilinogen (<2.0) mg/dL Ur Leukocyte Esterase (Negative) Urine RBC (0-5) /hpf Urine WBC (0-5) /hpf Ur Squamous Epith Cells (0-4) /hpf Urine Mucus (None) /hpf 08/30/18 08/30/18 08/30/18 Range/Units 02:30 02:30 03:59 WBC (3.8-10.6) k/uL RBC (4.30-5.90) m/uL Hgb (13.0-17.5) gm/dL Hct (39.0-53.0) % MCV (80.0-100.0) fL MCH (25.0-35.0) pg MCHC (31.0-37.0) g/dL RDW (11.5-15.5) % Plt Count (150-450) k/uL Neutrophils % % Lymphocytes % % Monocytes % % Eosinophils % % Basophils % % Neutrophils # (1.3-7.7) k/uL Lymphocytes # (1.0-4.8) k/uL Monocytes # (0-1.0) k/uL Eosinophils # (0-0.7) k/uL Basophils # (0-0.2) k/uL PT 9.8 (9.0-12.0) sec INR 0.9 (<1.2) APTT 24.0 (22.0-30.0) sec Sodium (137-145) mmol/L Potassium (3.5-5.1) mmol/L Chloride (98-107) mmol/L Carbon Dioxide (22-30) mmol/L Anion Gap mmol/L BUN (9-20) mg/dL Creatinine (0.66-1.25) mg/dL Est GFR (CKD-EPI)AfAm (>60 ml/min/1.73 sqM) Est GFR (CKD-EPI)NonAf (>60 ml/min/1.73 sqM) Glucose (74-99) mg/dL Plasma Lactic Acid Trey (0.7-2.0) mmol/L Calcium (8.4-10.2) mg/dL Magnesium (1.6-2.3) mg/dL Total Bilirubin (0.2-1.3) mg/dL AST (17-59) U/L ALT (21-72) U/L Alkaline Phosphatase (38-126) U/L Troponin I <0.012 (0.000-0.034) ng/mL Total Protein (6.3-8.2) g/dL Albumin (3.5-5.0) g/dL Amylase (30-110) U/L Lipase (23-300) U/L Urine Color Yellow Urine Appearance Clear (Clear) Urine pH 5.5 (5.0-8.0) Ur Specific [place] 1.050 H (1.001-1.035) Urine Protein Trace H (Negative) Urine Glucose (UA) 4+ H (Negative) Urine Ketones Trace H (Negative) Urine Blood Moderate H (Negative) Urine Nitrite Negative (Negative) Urine Bilirubin Negative (Negative) Urine Urobilinogen <2.0 (<2.0) mg/dL Ur Leukocyte Esterase Negative (Negative) Urine RBC 31 H (0-5) /hpf Urine WBC 2 (0-5) /hpf Ur Squamous Epith Cells <1 (0-4) /hpf Urine Mucus Rare H (None) /hpf Disposition Is patient prescribed a controlled substance at d/c from ED?: Yes When asked, does pt state using other controlled substances?: No If prescribed controlled substance>3 days was MAPS reviewed?: Prescribed <3 Days If opioid is for acute pain is fill amount 7 days or less?: Yes If Rx opioid, was Start Talking consent form obtained?: Yes Time of Disposition: 04:17 <Wili Hua P - Last Filed: 08/30/18 04:16> <Halie Booth P - Last Filed: 08/30/18 05:56> Clinical Impression: Ureterolithiasis Disposition: HOME SELF-CARE Condition: Good Instructions (If sedation given, give patient instructions): Kidney Stones (ED) Additional Instructions: Please take [place] for pain. Take Zofran as needed for nausea. Take Flomax as directed. Follow up with urology in 1-2 days. Return here to the emergency department if you have any worsening symptoms, intolerable pain, or cannot tolerate oral intake. Prescriptions: Tamsulosin [Flomax] 0.4 mg PO DAILY #10 cap HYDROcodone/APAP 5-325MG [[place] 5-325] 1 tab PO Q6HR PRN #10 tab PRN Reason: Pain Ondansetron [Zofran ODT] 4 mg PO Q8HR PRN #15 tab PRN Reason: Nausea Referrals: Deric Aguirre MD [Primary Care Provider] - 1-2 days Claus Phillip MD [STAFF PHYSICIAN] - 1-2 days
[2018-08-30 02:49] LABS: Basophils % (A) 0 %; Eosinophils # (A) 0.3 k/uL (0-0.7); Eosinophils % (A) 3 %; HCT 44.4 % (39.0-53.0); Lymphocytes # (A) 1.4 k/uL (1.0-4.8); Lymphocytes % (A) 14 %; MCHC 33.9 g/dL (31.0-37.0); MCV 88.5 fL (80.0-100.0); Mean Platelet Volume 8.3; Monocytes # (A) 0.6 k/uL (0-1.0); Monocytes % (A) 6 %; Neutrophils # (A) 7.6 k/uL (1.3-7.7); Neutrophils % (A) 75 %; Platelet Count 232 k/uL (150-450); RBC 5.02 m/uL (4.30-5.90); RDW 12.7 % (11.5-15.5); WBC 10.1 k/uL (3.8-10.6)
[2018-08-30 02:57] LABS: INR 0.9 (<1.2); Prothrombin Time 9.8 sec (9.0-12.0)
[2018-08-30 03:02] LABS: Calcium 9.5 mg/dL (8.4-10.2); Magnesium 1.6 mg/dL (1.6-2.3); Potassium 4.3 mmol/L (3.5-5.1); Total Bilirubin 0.4 mg/dL (0.2-1.3); Total Protein 6.9 g/dL (6.3-8.2)
[2018-08-30] MEDS ORDERED: SODIUM CHLORIDE 0.9% 500 ML 500 ML IV STA (03:03)
--- NOTE | 2018-08-30 03:55 | CT ---
EXAM: CT Abdomen and Pelvis With Intravenous Contrast CLINICAL HISTORY: Pain. Left flank pain. TECHNIQUE: Axial computed tomography images of the abdomen and pelvis with intravenous contrast. Coronal and sagittal reformatted images were created and reviewed. CTDI is 63.18 mGy and DLP is 2946 mGy-cm. This CT exam was performed using one or more of the following dose reduction techniques: automated exposure control, adjustment of the mA and/or kV according to patient size, and/or use of iterative reconstruction technique. COMPARISON: No relevant prior studies available. FINDINGS: Lung bases: Unremarkable. No mass. No consolidation. ABDOMEN: Liver: Unremarkable. No mass. Gallbladder and bile ducts: Unremarkable. No radiopaque calculi. No biliary ductal dilation. Pancreas: Unremarkable. No ductal dilation. No mass. No adjacent inflammatory changes. Spleen: Unremarkable. No splenomegaly. Adrenals: Unremarkable. No mass. Kidneys and ureters: Left distal ureteral 5 mm calculus with mild to moderate left hydroureteronephrosis and delayed nephrogram. Mild perinephric stranding/edema. Unremarkable right kidney. Stomach and bowel: No bowel obstruction. No significant bowel wall thickening. PELVIS: Appendix: Normal appendix. Bladder: Underdistention of bladder which limits evaluation. Reproductive: Unremarkable as visualized. ABDOMEN and PELVIS: Intraperitoneal space: Unremarkable. No free air. No ascites or significant fluid collection. Bones/joints: Mild osseous degenerative changes. No acute fracture. No dislocation. Soft tissues: Postsurgical changes of ventral hernia repair. Postsurgical changes in anterior abdominal wall. Vasculature: Unremarkable. No abdominal aortic aneurysm. Lymph nodes: Postsurgical changes of retroperitoneal lymph node dissection. No lymphadenopathy. IMPRESSION: 1. Left distal ureteral 5 mm calculus with mild to moderate left hydroureteronephrosis and delayed nephrogram. Mild left perinephric stranding/edema may be related to calculus although recommend conical correlation and correlation with urinalysis to exclude superimposed infection. 2. Underdistention of bladder which limits evaluation. Correlate with urinalysis. 3. Postsurgical changes of ventral hernia repair and retroperitoneal lymph node dissection.
[2018-08-30 04:09] VITALS: BP 123/66; PULSE 66; RESP 17
[2018-08-30 04:16] LABS: Appearance,Urine Clear (Clear); Bilirubin,Urine Negative (Negative); Blood,Urine Moderate (Negative); Color,Urine Yellow; Glucose,Urine (UA) 4+ (Negative); Ketones,Urine Trace (Negative); Leukocyte Esterase,Urine Negative (Negative); Mucus,Urine Rare /hpf; Nitrite,Urine Negative (Negative); PH, Urine 5.5 (5.0-8.0); Protein,Urine Trace (Negative); RBC,Urine 31 /hpf (0-5); Squamous Epithelial Cell,Urine <1 /hpf (0-4); Urobilinogen,Urine <2.0 mg/dL (<2.0); WBC,Urine 2 /hpf (0-5)
--- NOTE | 2018-08-30 04:44 | XR ---
EXAM: XR Abdomen, 1 View CLINICAL HISTORY: Pain. TECHNIQUE: Frontal supine view of the abdomen/pelvis. COMPARISON: No relevant prior studies available. FINDINGS: Gastrointestinal tract: Nonspecific and nonobstructive bowel gas pattern. Organs: Contrast within dilated left renal collecting system. Bones/joints: Unremarkable as visualized. Other: Postsurgical changes of abdominal wall hernia repair. IMPRESSION: 1. Contrast within dilated left renal collecting system from recent contrast enhanced CT. Correlate with recent CT findings. 2. Postsurgical changes of bowel wall hernia repair. 3. Nonspecific and nonobstructive bowel gas pattern.
== END 2018-08-30 04:36 | disposition home or self-care (01) ==
LOC: EC 01:37
DX: N13.2 Hydronephrosis with renal and ureteral calculous obstruction (principal); E11.9 Type 2 diabetes mellitus without complications; E78.5 Hyperlipidemia, unspecified; I10 Essential (primary) hypertension; G47.30 Sleep apnea, unspecified; Z87.891 Personal history of nicotine dependence; Z79.4 Long term (current) use of insulin; Z79.82 Long term (current) use of aspirin; Z79.899 Other long term (current) drug therapy; Z86.14 Personal history of Methicillin resistant Staphylococcus aureus infection; Z85.47 Personal history of malignant neoplasm of testis; Z90.79 Acquired absence of other genital organ(s); Z99.89 Dependence on other enabling machines and devices; Z98.890 Other specified postprocedural states
CPT/HCPCS: 36415; 80053; 82150; 83605; 83690; 83735; 84484; 85025; 85610; 85730; 81001; 74018; 74177; 99284; 96374; 96375; 96361; J2270; J2405; Q9967

== ENCOUNTER → 2018-09-15 | Outpatient (CLI) | payer MEDICAID ==
--- NOTE | 2018-09-15 13:19 | XR ---
EXAMINATION TYPE: XR KUB DATE OF EXAM: 09/15/2018 COMPARISON: 08/30/2018 HISTORY: Left-sided kidney stone TECHNIQUE: One view abdominal series FINDINGS: The osseous structures are intact. The bowel gas pattern is nonspecific. Postsurgical changes are no vicki. There is hypertrophic and degenerative change of the spine. Vague density in the left pelvis may be related to previous reported history of renal stone. Osteitis pubis condensans. IMPRESSION: 1. Nonspecific abdomen. Vague density in the pelvis is nonspecific. This seems somewhat larger than the previously noted left UVJ calcification. Perhaps CT scan can be obtained for further evaluation.
== END ==
LOC: RADXRMAIN 11:57
PROVIDERS: ATTEND Urology
DX: N20.1 Calculus of ureter (principal)
CPT/HCPCS: 74018

== ENCOUNTER → 2018-09-27 | Outpatient (CLI) | payer MEDICAID ==
[2018-09-27 11:55] VITALS: BMI 49.7
== END ==
LOC: BARWHC3 08:18
PROVIDERS: ATTEND Surgery Plastic and Reconstructive Surgery
DX: E66.01 Morbid (severe) obesity due to excess calories (principal); Z68.42 Body mass index [BMI] 45.0-49.9, adult
CPT/HCPCS: 97804

== ENCOUNTER → 2018-11-03 | Outpatient (CLI) | payer MEDICAID ==
[2018-11-03 15:42] VITALS: BP 136/77; PULSE 71; RESP 16; TEMP 98; BMI 48.4
--- NOTE | 2018-11-03 16:15 | P.PN ---
Subjective Progress Note Date: 11/03/18 DATE OF SERVICE: 11/03/2018 CHIEF COMPLAINT: New left flank pain and morbid obesity HISTORY OF PRESENT ILLNESS: Clint Valle is a 53-year-old male who comes in with long-standing morbid obesity. He was recently in the emergency room for abdominal pain less than 2 months ago at the left lower abdomen. No blood in stools. He denies any prior event. As a result of his obesity, he has developed diabetes type 2, gastroesophageal reflux disease, obstructive sleep apnea including osteoarthritis. He is looking to treat his diabetes by surgical means. At height of 5 feet 9.5 inches, his ideal body weight is 168 pounds. He comes in 336 pounds from 334 pounds, 3 months. He gained 2 pounds in 4 months. His highest weight was 365 pounds. His body mass index highest was 53.2 down to 49.1. He is 168 pounds overweight. PAST MEDICAL HISTORY: 1. Morbid obesity due to excess calories 2. Body mass index of 53.2, initial 3. Osteoarthritis of the knees. 4. Osteoarthritis of the lower back. 5. Hypertensive heart disease. 6. Gastroesophageal reflux disease 7. Hyperlipidemia 8. Obstructive sleep apnea 9. Testicular cancer 10. Panniculitis 11. Diabetes type 2, insulin-dependent PAST SURGICAL HISTORY: 1. Exploratory laparotomy lysis of adhesions 2. Complex abdominal wall reconstruction 3. Orchiectomy lymphadenectomy HOME MEDICATIONS: ALLERGIES: Home Medications Medication Instructions Recorded Confirmed Type Aspirin EC [Ecotrin Low Dose] 81 mg PO DAILY 04/30/16 02/04/18 History Lisinopril [Zestril] 2.5 mg PO DAILY 04/30/16 02/04/18 History Atorvastatin Calcium [Lipitor] 20 mg PO DAILY #30 tab 05/05/16 02/04/18 Rx Cefuroxime Axetil [Ceftin] 500 mg PO BID #14 tab 05/05/16 02/04/18 Rx INSULIN LISPRO (humaLOG) [humaLOG] 6 unit SQ AC-TID #1 vial 05/05/16 02/04/18 Rx Insulin Glargine [Lantus] 24 unit SQ HS #1 vial 05/05/16 02/04/18 Rx Nystatin 100,000Unit/gm Cream 1 applic TOPICAL TID applic 05/05/16 02/04/18 Rx [Mycostatin Cream] SILVER sulfADIAZINE Cream 1 applic TOPICAL BID applic 05/05/16 02/04/18 Rx [Silvadene 1% Cream] metFORMIN HCL [Glucophage] 1,000 mg PO BID #60 tab 05/05/16 02/04/18 Rx Allergies Allergy/AdvReac Type Severity Reaction Status Date / Time No Known Allergies Allergy Verified 02/04/18 10:05 SOCIAL HISTORY: Past tobacco use. FAMILY HISTORY: No family history of ulcerative colitis disease or Crohn's disease. Family history of morbid obesity. No lupus in the family. No reports of stomach or esophageal cancer. Has family history of diabetes REVIEW OF ORGAN SYSTEMS: CONSTITUTIONAL: At height of 5 feet 9.5 inches, his ideal body weight is 168 pounds. He comes in 338 pounds. His highest weight was 365 pounds. His body mass index highest was 53.2. Today his BMI is 48.7. He is 166 pounds overweight. HEENT: Denies any active troubles with vision or hearing. No troubles with swal lowing. ENDOCRINE: Has diabetes. No hypothyroidism. CARDIOVASCULAR: No reports of palpitations or heart attacks or chest pain. RESPIRATORY: Has daytime somnolence. No asthma. GI: Denies any bright red blood per rectum. No diarrhea. No constipation. MUSCULOSKELETAL: Has lower back pain and joint pain. Has osteoarthritis of the knees. NEURO: No headaches. No seizure disorders. PSYCH: No depression. No suicidal ideation. RHEUMATOLOGIC: No lupus. No rheumatoid arthritis. HEMATOLOGIC: Denies any abnormal bleeding or bruising. No personal history of DVTs. SKIN: No rash. No skin cancer. Has panniculitis PHYSICAL EXAM: VITAL SIGNS: Height 5 foot 9.5 inches, weight 332 pounds. BMI 48.5 Vital Signs Temp 98 F 11/03/18 15:39 Pulse 71 11/03/18 15:39 Resp 16 11/03/18 15:39 BP 136/77 11/03/18 15:39 Pulse Ox GENERAL: Well-developed in no acute distress. HEENT: No scleral icterus. Extraocular movements grossly intact. Hears conversational speech. No nasal drainage. NECK: Supple without lymphadenopathy. CHEST: Nonlabored respirations with equal bilateral excursions. CARDIOVASCULAR: Regular rate and regular rhythm. Distal 2+ pulses. ABDOMEN: Has multiple scarring along the abdomen. Soft, nontender, nondistended. Has moderate-sized pannus. Midline incision MUSCULOSKELETAL: No clubbing, cyanosis. Gross strength 5/5 distal lower ext remities. NEURO: No focal or lateralizing signs. Cranial nerves 2 through 12 grossly within normal limits. PSYCH: Appropriate affect. Alert and oriented to person, place and time. SKIN: Good skin turgor. Well perfused. STUDIES: CT of the abdomen and pelvis imaging independently reviewed demonstrating moderate retained mesh without recurrent abdominal wall hernia. RADIOLOGY: Radiology reports consisten with left kidney stone ASSESSMENT: 1. Morbid obesity due to excess calories 2. Body mass index of 53.2 to 48.5 3. Osteoarthritis of the knees. 4. Osteoarthritis of the lower back. 5. Hypertensive heart disease. 6. Gastroesophageal reflux disease 7. Hyperlipidemia 8. Obstructive sleep apnea 9. Testicular cancer 10. Panniculitis 11. Diabetes type 2, insulin-dependent 12. Hepatomegaly 13. Kidney stones PLAN: 1. Bariatric options between a sleeve, band and a Nela-en-Y gastric bypass were reviewed in detail. The patient elected for a sleeve gastrectomy. Robotic assisted approach described. 2. The [place] [facility] Data was also reviewed with benefits and risks as described. 3. An 8 page second-generation bariatric consent form was reviewed in detail i ncluding potential of bleeding, infection, leaks, adequate weight loss, nutritional deficiencies which the patient demonstrated understanding of the risks. 4. A 2 week high-protein low caloric 800 kcal diet described to address hepatomegaly. 5. Preoperative labs including complete metabolic panel and CBC with type and screen recommended. 6. DVT prophylaxis per [place] [facility]. 7. Antibiotic prophylaxis. 8. Inpatient hospitalization anticipated for more than 2 nights. 9. All questions and concerns were addressed with the patient. 10. He is high risk with a large liver. 11. Also he has multiple surgeries and will need lysis of adhesions. Anticipated time of surgery is 4.5 hrs. 12. Risk of abandoning surgery also reviewed. Objective - Vital Signs Vital signs: Vital Signs Temp 98 F 11/03/18 15:39 Pulse 71 11/03/18 15:39 Resp 16 11/03/18 15:39 BP 136/77 11/03/18 15:39 Pulse Ox Intake & Output 06/18/19 06/19/19 06/19/19 18:59 06:59 18:59 Weight 151.046 kg
== END | disposition home or self-care (01) ==
LOC: BARWHC3 14:44
PROVIDERS: ATTEND Surgery Plastic and Reconstructive Surgery
DX: E66.01 Morbid (severe) obesity due to excess calories (principal); M17.0 Bilateral primary osteoarthritis of knee; M47.816 Spondylosis without myelopathy or radiculopathy, lumbar region; I11.9 Hypertensive heart disease without heart failure; K21.9 Gastro-esophageal reflux disease without esophagitis; E78.5 Hyperlipidemia, unspecified; G47.33 Obstructive sleep apnea (adult) (pediatric); C62.90 Malignant neoplasm of unspecified testis, unspecified whether descended or undescended; M79.3 Panniculitis, unspecified; E11.9 Type 2 diabetes mellitus without complications; N20.0 Calculus of kidney; R16.0 Hepatomegaly, not elsewhere classified; Z68.42 Body mass index [BMI] 45.0-49.9, adult; Z87.891 Personal history of nicotine dependence; Z98.890 Other specified postprocedural states; Z79.82 Long term (current) use of aspirin; Z79.4 Long term (current) use of insulin; Z79.899 Other long term (current) drug therapy
CPT/HCPCS: 99211

== ENCOUNTER → 2018-11-22 | Outpatient (CLI) | payer MEDICAID ==
[2018-11-22 07:37] LABS: Basophils % (A) 1 %; Eosinophils # (A) 0.3 k/uL (0-0.7); Eosinophils % (A) 6 %; HCT 42.4 % (39.0-53.0); HGB 14.3 gm/dL (13.0-17.5); Lymphocytes # (A) 1.2 k/uL (1.0-4.8); Lymphocytes % (A) 22 %; MCHC 33.7 g/dL (31.0-37.0); MCV 88.9 fL (80.0-100.0); Mean Platelet Volume 8.9; Monocytes # (A) 0.4 k/uL (0-1.0); Monocytes % (A) 8 %; Neutrophils # (A) 3.3 k/uL (1.3-7.7); Neutrophils % (A) 60 %; Platelet Count 219 k/uL (150-450); RBC 4.77 m/uL (4.30-5.90); RDW 14.1 % (11.5-15.5); WBC 5.4 k/uL (3.8-10.6)
[2018-11-22 07:55] LABS: ALT 44 U/L (21-72); AST 34 U/L (17-59); African American GFR (CKD) >90 (>60 ml/min/1.73 sqM); Albumin 3.9 g/dL (3.5-5.0); Alkaline Phosphatase 61 U/L (38-126); Anion Gap 11 mmol/L; Blood Urea Nitrogen 16 mg/dL (9-20); Calcium 9.5 mg/dL (8.4-10.2); Carbon Dioxide 29 mmol/L (22-30); Chloride 99 mmol/L (98-107); Glucose 84 mg/dL (74-99); Potassium 4.2 mmol/L (3.5-5.1); Sodium 139 mmol/L (137-145); Total Bilirubin 0.6 mg/dL (0.2-1.3); Total Protein 6.6 g/dL (6.3-8.2)
== END | disposition home or self-care (01) ==
LOC: LABPAT 06:46
PROVIDERS: ATTEND Surgery Plastic and Reconstructive Surgery
DX: Z01.812 Encounter for preprocedural laboratory examination (principal)
CPT/HCPCS: 36415; 80053; 85025

== ENCOUNTER 2018-11-29 06:16 | Inpatient (IN) | payer MEDICAID ==
--- NOTE | 2018-11-28 13:37 | P.GSHP ---
History of Present Illness H&P Date: 11/29/18 DATE OF SERVICE: 11/29/2018 CHIEF COMPLAINT: Morbid obesity HISTORY OF PRESENT ILLNESS: Clint Valle is a 53-year-old male who comes in with long-standing morbid obesity. He comes in looking into weight loss surgery. He is looking into surgery to help his diabetes. He has history of multiple abdominal surgeries. At height of 5 feet 9.5 inches, his ideal body weight is 168 pounds. He comes in 332 pounds from 336 pounds, 6 months. He has lost 6 pounds in 6 months. His highest weight was 365 pounds. His body mass index highest was 53.2 down to 48.4. He is 164 pounds overweight. PAST MEDICAL HISTORY: 1. Morbid obesity due to excess calories 2. Body mass index of 53.2, initial 3. Osteoarthritis of the knees. 4. Osteoarthritis of the lower back. 5. Hypertensive heart disease. 6. Gastroesophageal reflux disease 7. Hyperlipidemia 8. Obstructive sleep apnea 9. Testicular cancer 10. Panniculitis 11. Diabetes type 2, insulin-dependent PAST SURGICAL HISTORY: 1. Exploratory laparotomy lysis of adhesions 2. Complex abdominal wall reconstruction 3. Orchiectomy lymphadenectomy HOME MEDICATIONS: ALLERGIES: Home Medications Medication Instructions Recorded Confirmed Type Aspirin EC [Ecotrin Low Dose] 81 mg PO DAILY 04/30/16 02/04/18 History Lisinopril [Zestril] 2.5 mg PO DAILY 04/30/16 02/04/18 History Atorvastatin Calcium [Lipitor] 20 mg PO DAILY #30 tab 05/05/16 02/04/18 Rx Cefuroxime Axetil [Ceftin] 500 mg PO BID #14 tab 05/05/16 02/04/18 Rx INSULIN LISPRO (humaLOG) [humaLOG] 6 unit SQ AC-TID #1 vial 05/05/16 02/04/18 Rx Insulin Glargine [Lantus] 24 unit SQ HS #1 vial 05/05/16 02/04/18 Rx Nystatin 100,000Unit/gm Cream 1 applic TOPICAL TID applic 05/05/16 02/04/18 Rx [Mycostatin Cream] SILVER sulfADIAZINE Cream 1 applic TOPICAL BID applic 05/05/16 02/04/18 Rx [Silvadene 1% Cream] metFORMIN HCL [Glucophage] 1,000 mg PO BID #60 tab 05/05/16 02/04/18 Rx Allergies Allergy/AdvReac Type Severity Reaction Status Date / Time No Known Allergies Allergy Verified 02/04/18 10:05 SOCIAL HISTORY: Past tobacco use. FAMILY HISTORY: No family history of ulcerative colitis disease or Crohn's disease. Family history of morbid obesity. No lupus in the family. No reports of stomach or esophageal cancer. Has family history of diabetes REVIEW OF ORGAN SYSTEMS: CONSTITUTIONAL: At height of 5 feet 9.5 inches, his ideal body weight is 168 pounds. His highest weight was 365 pounds. His body mass index highest was 53.2. HEENT: Denies any active troubles with vision or hearing. No troubles with swallowing. ENDOCRINE: Has diabetes. No hypothyroidism. CARDIOVASCULAR: No reports of palpitations or heart attacks or chest pain. RESPIRATORY: Has daytime somnolence. No asthma. GI: Denies any bright red blood per rectum. No diarrhea. No constipation. MUSCULOSKELETAL: Has lower back pain and joint pain. Has osteoarthritis of the knees. NEURO: No headaches. No seizure disorders. PSYCH: No depression. No suicidal ideation. RHEUMATOLOGIC: No lupus. No rheumatoid arthritis. HEMATOLOGIC: Denies any abnormal bleeding or bruising. No personal history of DVTs. SKIN: No rash. No skin cancer. Has panniculitis PHYSICAL EXAM: VITAL SIGNS: Height 5 foot 9.5 inches, weight 332 pounds. BMI 48.5 GENERAL: Well-developed in no acute distress. HEENT: No scleral icterus. Extraocular movements grossly intact. Hears conversational speech. No nasal drainage. NECK: Supple without lymphadenopathy. CHEST: Nonlabored respirations with equal bilateral excursions. CARDIOVASCULAR: Regular rate and regular rhythm. Distal 2+ pulses. ABDOMEN: Has multiple scarring along the abdomen. Soft, nontender, nondistended. Has moderate-sized pannus. Midline incision MUSCULOSKELETAL: No clubbing, cyanosis. Gross strength 5/5 distal lower extremities. NEURO: No focal or lateralizing signs. Cranial nerves 2 through 12 grossly within normal limits. PSYCH: Appropriate affect. Alert and oriented to person, place and time. SKIN: Good skin turgor. Well perfused. ASSESSMENT: 1. Morbid obesity due to excess calories 2. Body mass index of 53.2, initial 3. Osteoarthritis of the knees. 4. Osteoarthritis of the lower back. 5. Hypertensive heart disease. 6. Gastroesophageal reflux disease 7. Hyperlipidemia 8. Obstructive sleep apnea 9. History of testicular cancer 10. Panniculitis 11. Diabetes type 2, insulin-dependent 12. History of multiple abdominal wall hernia PLAN: 1. Bariatric options between a sleeve, band and a Nela-en-Y gastric bypass were reviewed in detail. The patient elected for a sleeve gastrectomy. Robotic assisted approach described. He is very high risk with prior history of multiple abdominal wall surgeries. Additionally, discontinuing the procedure for severe abdominal adhesions were also discussed. 2. The [place] [facility] Data was also reviewed with benefits and risks as described. 3. An 8 page second-generation bariatric consent form was reviewed in detail including potential of bleeding, infection, leaks, adequate weight loss, nutritional deficiencies which the patient demonstrated understanding of the risks. 4. A 2 week high-protein low caloric 800 kcal diet described to address hepatomegaly. 5. Preoperative labs including complete metabolic panel and CBC with type and screen recommended. 6. DVT prophylaxis per [place] [facility]. 7. Antibiotic prophylaxis. 8. Inpatient hospitalization anticipated for more than 2 nights. 9. All questions and concerns were addressed with the patient. Past Medical History Past Medical History: Cancer, Diabetes Mellitus, GERD/Reflux, Hyperlipidemia, Hypertension, Sleep Apnea/CPAP/BIPAP Additional Past Medical History / Comment(s): Rt testicular cancer 2000. KIDNEY STONE 08/2018. INSULIN ON HOLD SINCE 11/14/18. ON LIQUID PRE-OP DIET SINCE 11/08/18. USES CPAP. History of Any Multi-Drug Resistant Organisms: None Reported Date of last positivie culture/infection: None MDRO Source:: None Past Surgical History: Hernia Repair Additional Past Surgical History / Comment(s): 08/2013 Exploratory lap with lysis of adhesions, ventral hernia repair with mesh, excisional abdominal wall flap necrosis with wound vac and debridements. Radical RT orchiectomy with retroperitoneal lymph node dissection 2000. EGD, COLONOSCOPY. Past Anesthesia/Blood Transfusion Reactions: No Reported Reaction Additional Past Anesthesia/Blood Transfusion Reaction / Comment(s): Pt has never received blood. Smoking Status: Former smoker - Past Family History Father Family Medical History: Diabetes Mellitus, Osteoarthritis (OA) Additional Family Medical History / Comment(s): Father had war wounds, knee replacement, hernias. He at age 90yrs. Mother Family Medical History: Cancer Additional Family Medical History / Comment(s): Mother had breast cancer. Medications and Allergies Home Medications Medication Instructions Recorded Confirmed Type Aspirin EC [Ecotrin Low Dose] 81 mg PO DAILY 04/30/16 11/25/18 History Lisinopril [Zestril] 2.5 mg PO DAILY 04/30/16 11/25/18 History metFORMIN HCL [Glucophage] 1,000 mg PO BID #60 tab 05/05/16 11/25/18 Rx Atorvastatin Calcium [Lipitor] 20 mg PO HS 04/20/18 11/25/18 History Citalopram Hydrobromide [CeleXA] 20 mg PO HS 04/20/18 11/25/18 History Furosemide [Lasix] 10 mg PO DAILY 04/20/18 11/25/18 History Insulin Glargine [Lantus] 43 unit SQ HS 04/20/18 11/25/18 History Insulin Lispro [humaLOG Kwikpen] 7 unit SQ AC-TID 04/20/18 11/25/18 History Vitamin B Complex 1 each PO DAILY 04/20/18 11/25/18 History Acetaminophen [Tylenol Extra 1,000 mg PO Q6H PRN 11/25/18 11/25/18 History Strength] Omeprazole 20 mg PO DAILY 11/25/18 11/25/18 History Allergies Allergy/AdvReac Type Severity Reaction Status Date / Time No Known Allergies Allergy Verified 11/25/18 10:27
[~2018-11-29 06:16] MED LIST changes: +DEXAMETHASONE SOD PHOSPHATE 10 MG/ML 1 ML VIAL IV ONE; -LACTATED RINGERS 1,000 ML IV SCH; +ONDANSETRON 4 MG/2 ML VIAL IVP ONE; +SCOPOLAMINE 1.5MG/72HR PATCH TRANSDERM ONE; +ceFAZolin 3 GM in SODIUM CHLORIDE 0.9% 100 ML IVPB ONE
[2018-11-29] MEDS ORDERED: CHLORHEXIDINE GLUCONATE 15 ML CUP MUCOUS MEM ONE (06:30)
[2018-11-29] MEDS ORDERED: PANTOPRAZOLE 40 MG/10 ML VIAL IV ONE (06:30)
[2018-11-29] MEDS ORDERED: ENOXAPARIN 40 MG/0.4 ML SYRINGE SQ ONE (06:30)
[2018-11-29 06:53] LABS: Glucose,Whole Blood 76 mg/dL (75-99)
[2018-11-29] MEDS: LACTATED RINGERS 1,000 ML IV SCH (07:00)
[2018-11-29] MEDS ORDERED: ROCURONIUM BROMIDE 10 MG/ML 10 ML VIAL IV ONE (07:32)
[2018-11-29] MEDS ORDERED: MIDAZOLAM 2 MG/2 ML VIAL ONE (07:32)
[2018-11-29] MEDS ORDERED: LIDOCAINE 1% INJ 10MG/ML (20 ML MDV) ONE (07:32)
[2018-11-29] MEDS ORDERED: ONDANSETRON 4 MG/2 ML VIAL ONE (07:32)
[2018-11-29] MEDS ORDERED: WATER FOR INJECTION, STERILE 10 ML VIAL IV ONE (07:32)
[2018-11-29] MEDS ORDERED: SUCCINYLCHOLINE CHLORIDE VIAL 200 MG/10 ML VIAL IV ONE (07:32)
[2018-11-29] MEDS ORDERED: ePHEDrine SULFATE/0.9% NACL/PF 50 MG/5 ML SYRINGE IV ONE (07:32)
[2018-11-29] MEDS ORDERED: PROPOFOL 10 MG/ML 20 ML VIAL IV ONE (07:32)
[2018-11-29] MEDS ORDERED: GLYCOPYRROLATE 0.2 MG/ML 2 ML VIAL ONE (07:32)
[2018-11-29] MEDS ORDERED: fentaNYL (PF) 50 MCG/ML 2 ML AMP ONE (07:32)
[2018-11-29] MEDS ORDERED: NEOSTIGMINE 1 MG/ML 10 ML VIAL ONE (07:32)
[2018-11-29] MEDS ORDERED: LACTATED RINGERS 1,000 ML IV ONE ×3 (08:17→10:14)
[2018-11-29] MEDS ORDERED: BUPIVACAINE (PF) 0.25% 30 ML VIAL SQ ONE (08:24)
--- NOTE | 2018-11-29 12:18 | P.OP ---
Date of Procedure: 11/29/18 Description of Procedure: SURGEON: TAWANA CONNER MD PREOPERATIVE DIAGNOSES: 1. Morbid obesity due to excess calories 2. Body mass index of 53.2, initial 3. Osteoarthritis of the knees. 4. Osteoarthritis of the lower back. 5. Hypertensive heart disease. 6. Gastroesophageal reflux disease 7. Hyperlipidemia 8. Obstructive sleep apnea 9. History of testicular cancer 10. Panniculitis 11. Diabetes type 2, insulin-dependent 12. History of multiple abdominal surgeries 13. History of complicated abdominal wall hernia repair POSTOPERATIVE DIAGNOSES: 1. Morbid obesity due to excess calories 2. Body mass index of 53.2, initial 3. Osteoarthritis of the knees. 4. Osteoarthritis of the lower back. 5. Hypertensive heart disease. 6. Gastroesophageal reflux disease 7. Hyperlipidemia 8. Obstructive sleep apnea 9. History of testicular cancer 10. Panniculitis 11. Diabetes type 2, insulin-dependent 12. History of multiple abdominal surgeries 13. History of complicated abdominal wall hernia repair 14. Severe peritoneal adhesions of omentum to abdominal wall including small bowel to the abdominal wall OPERATION: 1. Robotic assisted daVinci Xi laparoscopic extensive lysis of adhesions 1 hour 45 minutes 2. Robotic assisted daVinci Xi laparoscopic sleeve gastrectomy with 40-Bangladeshi bougie, multiport. 3. Intraoperative esophagogastroduodenoscopy. ANESTHESIA: Gen. local anesthetic ESTIMATED BLOOD LOSS: 20 mL SPECIMENS REMOVED: Sleeve gastrectomy COMPLICATIONS: None. INDICATIONS: Clint Valle is a 53-year-old male who comes in with long-standing morbid obesity. He has history of multiple abdominal surgeries. He has completed medical risk assessment, dietary surveillance and counseling, cardiac risk including psychological assessment. He elected for sleeve gastrectomy. At height of 5 feet 9.5 inches, his ideal body weight is 168 pounds. He comes in 332 pounds. His highest weight was 365 pounds. His body mass index highest was 53.2 down to 48.4. He is 164 pounds overweight. All surgical options for morbid obesity had been described using the [place] [facility] comorbidity resolution including complication risk score. He presents a particular challenge including multiple abdominal surgeries prohibiting a Enla-en-Y gastric bypass. Alternatively, sleeve gastrectomy was described. A second-generation bariatric consent form was described in detail including curtailing his procedure, the possibility of gastroesophageal reflux disease, protein malnutrition, leaks, gastric stricture, venous thrombosis, gastroesophageal reflux disease, need for further surgery for which he demonstrated understanding. Benefits and risks of the procedure were described at length. Informed consent was obtained. DESCRIPTION: The patient was brought into the operating room theater. Preoperatively he had received Lovenox subcutaneously for DVT prophylaxis. Additionally he had Peridex oral solution as an oral decontaminant. After general induction, the abdomen was prepped and draped in standard sterile fashion. An Ioban draping was placed along the abdomen. Palma catheter was placed. Prior to start of the procedure, timeout protocol was performed and confirmed with the surgical team. A 5 mm 0 degrees laparoscopic trocar entry was performed along the left upper quadrant. The abdomen was insufflated to 15 mmHg pressure which he tolerated well. Diagnostic laparoscopy demonstrated no injury to bowel, viscera, or mesentery. Very dense intra-abdominal adhesions involving small bowel including omentum to large anterior abdominal wall mesh was found. As a result, a double dock technique was proposed with initial lysis of adhesions prior to proceeding with his sleeve gastrectomy. A separate 5 mm trochar was placed along the epigastrium under direct visualization to anticipate for placement of trochars for lysis of adhesions. A robotic da Teodora Xi system was prepped and primed. The robot was docked along the left lateral abdomen. Next, three 8 mm robotic ports were placed along the left lateral abdominal wall all under direct visualization. The camera 8-mm port was maintained along mid- lateral abdomen. Please note that the ports were placed at least 10 to 15 cm away from the target anatomy. Instruments including scissors, graspers and vessel sealer were interchanged by the security assistant. I had sat at the console. Omental adhesions including small bowel adhesions involving the jejunum and ileum were found along the anterior abdominal wall, right lower quadrant, right upper quadrant and midline. No evidence of incisional hernia was identified. The rest of the abdomen was unremarkable for small bowel pathology. Adhesions were lysed using vessel sealer and scissors carefully over 1 hour 45 minutes. The inferior edge of the liver was also adherent to the epigastrium and falciform ligament. The gallbladder was completely scarred and obscured by the right upper quadrant omental adhesions including the colon. Once the adhesions were cleared along the anterior abdominal wall for placement of the trochars, attention was brought to the sleeve gastrectomy portion of the procedure. The robot was undocked. A 8 mm port was placed along the right upper abdominal wall after exchanging the 5 mm port. A separate 8 mm port was placed along the left lateral abdominal wall. Please note that the ports were placed at least 20 cm away from the target anatomy. Care was taken to check each robotic arms were safely away from collision with the bed or the patient. Next, 12-mm robot stapler port was placed along the right upper quadrant. The camera 8-mm port was maintained along the epigastrium. The patient was repositioned in reverse Trendelenburg position at 16-degrees after lowering the bed. The robot was docked along the left side of the patient. Using a grasper for arm 4, a veseel sealer for arm 3, including grasper for arm 1, the robotic system was docked and primed as described. Instruments were interchanged by the security assistant for stapler loads. The camera was placed at 30-degrees down. I had sat at the console. The pylorus was adherent to the anterior abdominal wall and identified 6 cm proximally along the greater curvature of the stomach, the short gastrics were mobilized upwards to the angle of His using a vessel sealer. Hemostasis was excellent during this portion of the procedure. Next, the upper pole of the stomach was adherent to the left rocío, which was gently dissected free using atraumatic grasper. The nursing water pumping station engineer placed a 40-Bangladeshi blunted tip bougie into the stomach. Robotic stapler green loads 60 mm x 5 were used to create the sleeve. Initial firing was across the antrum of the stomach towards the angle of His. The staple line was completely hemostatic and linear without corkscrewing. Hemostasis was excellent. The space from the angularis incisura of the sleeve was approximately 4 cm. I then went to the head of the bed to perform the intraoperative esophagogastroduodenoscopy leak test. The upper pole of the stomach was bathed using normal saline solution. The scope was withdrawn with careful inspection along the staple line for which no leaks were found along the entire length. Additionally, the sleeve was completely hemostatic without any encroachment along the angularis incisura. Its topology was a soft "J". No stricture was encountered upon placement of the scope. The GI tract was desufflated. The patient tolerated this portion of the procedure well. The scope was completely withdrawn. The robot was undocked. I then rescrubbed into case, whereby the irrigation fluid was aspirated from the abdominal cavity. Tisseel fibrin sealant was placed along the entire staple length. Attention was now brought to removal of the specimen. The distal end of the sleeve gastrectomy specimen was brought out through the 12 mm port at the left upper quadrant. The specimen was gently removed en total, corresponding to 20 cm x 4 cm sleeve gastrectomy specimen. No contamination had occurred during this process. All instruments and pneumoperitoneum including irrigation fluid was removed from the abdominal cavity. The 12 mm port site was irrigated with warm normal saline solution and diluted hydron peroxide. The 12-mm port site was reapproximated using 0 Vicryl and Elio-Kate of the left upper quadrant. The final incisions were closed using subcuticular interrupted suture of 4-0 Monocryl. Dermabond was applied to the skin once the skin had been cleansed. OptiFoam dressing was placed along the stomach extraction site. At the end of the procedure, needle, sponge, and instrument count was verified correct by the surgical lead. The patient was taken to the postanesthesia care unit in stable condition. He had tolerated the procedure well. Intraoperative films and findings were reviewed with the patient's family. FINDINGS: 1. Negative intraoperative esophagogastrojejunoscopy leak test. 2. No large hiatus hernia. 3. Total of 5 staplers used including 2 - 60 mm green robot radha used to create the gastric sleeve. 4. Sleeve gastrectomy 20 x 4 cm 5. Double dock along left abdominal wall including upper abdomen 4. Extensive lysis performed over 1 hour 45 minutes 5. No liver retractor required 6. Console time 2 hr 4 min COMPLEXITY: Extensive lysis of adhesions performed secondary to patient's personal history of multiple abdominal surgeries including abdominal wall reconstruction involving component separation technique and large intra-abdominal mesh placement. Dense adhesions of small bowel to mesh identified with careful dissection without enterotomies performed. Complete adhesional lysis involving anterior abdominal wall into epigastrium required to perform sleeve gastrectomy. Over 1 hour 45 minutes used to completely dissect and lyse omental adhesions involving greater omentum as well as small bowel.
[2018-11-29] MEDS ORDERED: HYDROcodone/APAP 15 ML SOLUTION PO PRN (12:19)
[2018-11-29] MEDS ORDERED: ACETAMINOPHEN IV (For NPO) 1,000 MG in EMPTY BAG 1 BAG IVPB ONE ×2 (12:19→13:30)
[2018-11-29] MEDS ORDERED: NALOXONE 0.4 MG/ML 1 ML VIAL IV PRN (12:19)
[2018-11-29] MEDS: HYDROmorphone 0.5 MG/0.5 ML SYRINGE IVP PRN ×4 (12:46→13:25)
[2018-11-29 13:33] LABS: Glucose,Whole Blood 137 mg/dL (75-99)
[2018-11-29] MEDS: 0.9% NACL WITH KCL 20 MEQ/L 1,000 ML IV SCH ×2 (14:22→16:01)
[2018-11-29] MEDS: ALBUTEROL NEBULIZED 2.5 MG/3 ML INHALATION SCH ×2 (15:41→20:20)
[2018-11-29] MEDS: ceFAZolin 3 GM in SODIUM CHLORIDE 0.9% 100 ML IVPB SCH (16:04)
[2018-11-29] MEDS: HYDROmorphone 1 MG/ML 1 ML SYRINGE IVP PRN ×2 (16:08→21:06)
[2018-11-29 16:49] LABS: Glucose,Whole Blood 122 mg/dL (75-99)
[2018-11-29] MEDS: HYOSCYAMINE ORAL DROPS 1.875 MG/15 ML BOTTLE PO SCH (16:50)
[2018-11-29] MEDS: SIMETHICONE 40 MG/0.6 ML DROPS 2,000 MG/30 ML BOTTLE PO SCH (16:53)
[2018-11-29] MEDS: ONDANSETRON 4 MG/2 ML VIAL IVP SCH (16:55)
[2018-11-29 20:11] LABS: Glucose,Whole Blood 115 mg/dL (75-99)
[2018-11-30] MEDS: INSULIN ASPART (NovoLOG) 100 UNIT/ML VIAL SQ SCH ×2 (00:15→08:52)
[2018-11-30 00:16] LABS: Glucose,Whole Blood 102 mg/dL (75-99)
[2018-11-30] MEDS: HYOSCYAMINE ORAL DROPS 1.875 MG/15 ML BOTTLE PO SCH ×3 (00:17→11:49)
[2018-11-30] MEDS: SIMETHICONE 40 MG/0.6 ML DROPS 2,000 MG/30 ML BOTTLE PO SCH ×3 (00:17→11:48)
[2018-11-30] MEDS: ONDANSETRON 4 MG/2 ML VIAL IVP SCH ×3 (00:18→11:46)
[2018-11-30] MEDS: ceFAZolin 3 GM in SODIUM CHLORIDE 0.9% 100 ML IVPB SCH (00:18)
[2018-11-30] MEDS: 0.9% NACL WITH KCL 20 MEQ/L 1,000 ML IV SCH (01:48)
[2018-11-30] MEDS: HYDROmorphone 1 MG/ML 1 ML SYRINGE IVP PRN (07:25)
[2018-11-30 07:47] LABS: African American GFR (CKD) >90 (>60 ml/min/1.73 sqM); Anion Gap 9 mmol/L; Blood Urea Nitrogen 9 mg/dL (9-20); Calcium 8.9 mg/dL (8.4-10.2); Carbon Dioxide 28 mmol/L (22-30); Chloride 102 mmol/L (98-107); Magnesium 1.7 mg/dL (1.6-2.3); Phosphorus 3.1 mg/dL (2.5-4.5); Potassium 4.3 mmol/L (3.5-5.1); Sodium 139 mmol/L (137-145)
[2018-11-30] MEDS ORDERED: 1: MVI, ADULT NO.4 WITH VIT K 10 ML, THIAMINE 100 MG, FOLIC ACID 1 MG, POTASSIUM CHLORID IV SCH ×6 (08:00)
[2018-11-30 08:12] LABS: Glucose,Whole Blood 96 mg/dL (75-99)
[2018-11-30] MEDS: ALBUTEROL NEBULIZED 2.5 MG/3 ML INHALATION SCH ×3 (08:15→15:48)
[2018-11-30] MEDS ORDERED: ENOXAPARIN 40 MG/0.4 ML SYRINGE SQ SCH (09:00)
[2018-11-30] MEDS ORDERED: PANTOPRAZOLE 40 MG/10 ML VIAL IV SCH (09:00)
[2018-11-30 09:09] LABS: Basophils % (A) 0 %; Eosinophils # (A) 0.1 k/uL (0-0.7); Eosinophils % (A) 1 %; HCT 38.6 % (39.0-53.0); HGB 13.1 gm/dL (13.0-17.5); Lymphocytes % (A) 11 %; MCH 30.7 pg (25.0-35.0); MCHC 33.9 g/dL (31.0-37.0); MCV 90.5 fL (80.0-100.0); Mean Platelet Volume 9.5; Monocytes # (A) 0.6 k/uL (0-1.0); Monocytes % (A) 7 %; Neutrophils # (A) 7.1 k/uL (1.3-7.7); Neutrophils % (A) 80 %; Platelet Count 201 k/uL (150-450); RBC 4.26 m/uL (4.30-5.90); RDW 14.5 % (11.5-15.5); WBC 8.9 k/uL (3.8-10.6)
--- NOTE | 2018-11-30 09:24 | FL ---
EXAMINATION TYPE: FL UGI DATE OF EXAM: 11/30/2018 LIMITED UGI: CLINICAL HISTORY: Morbid Obesity, gastric sleeve surgery yesterday. TECHNIQUE: Limited esophagram is performed utilizing 50 oz of Isovue-370. A total of 37 seconds of f luoroscopic time was utilized during procedure. 26 spot images are saved. COMPARISON: None. FINDINGS: The patient swallowed contrast without difficulty or delay. Esophageal peristalsis and mo tility are within normal limits. There is good flow of contrast along the diaphragmatic hiatus into proximal stomach and subsequent flow through proximal anastomosis into gastric sleeve. There is mild delay in flow from distal sleeve at distal anastomosis and into pylorus and duodenal sweep. Patient r emains asymptomatic. There is no evidence of contrast extravasation to suggest leak. Numerous coils f rom ventral wall hernia repair surgery are partially imaged in the overlying abdomen. IMPRESSION: No evidence of leak or significant obstruction status post recent gastric sleeve surgery yesterday.
[2018-11-30 11:16] LABS: Glucose,Whole Blood 100 mg/dL (75-99)
--- NOTE | 2018-11-30 12:10 | P.DS ---
Providers Date of admission: 11/29/18 06:16 Expected date of discharge: 11/30/18 Attending physician: Betty Escobar Primary care physician: Dontae Aguirre - Discharge Diagnosis(es) (1) Morbid obesity Current Visit: No Status: Chronic Hospital Course: 53-year-old male who is status post robotic-assisted laparoscopic sleeve gastrectomy and lysis of adhesions. Patient is doing well postoperatively without any immediate complications. Esophagram completed negative for leak or obstruction. Patient is tolerating clear liquid diet without difficulty. Pain controlled on oral medications. Vital signs have been stable. Patient is stable for discharge home today. Please see EMR for further hospital course details. Discharge diagnosis 1. Morbid obesity due to excess calories 2. Body mass index of 53.2, initial 3. Osteoarthritis of the knees. 4. Osteoarthritis of the lower back. 5. Hypertensive heart disease. 6. Gastroesophageal reflux disease 7. Hyperlipidemia 8. Obstructive sleep apnea 9. History of testicular cancer 10. Panniculitis 11. Diabetes type 2, insulin-dependent 12. History of multiple abdominal surgeries 13. History of complicated abdominal wall hernia repair 14. Severe peritoneal adhesions of omentum to abdominal wall including small bowel to the abdominal wall Nurse practitioner note has been reviewed by physician. Signing provider agrees with the documented findings, assessment, and plan of care. Patient Condition at Discharge: Stable Plan - Discharge Summary Discharge Rx Participant: Yes New Discharge Prescriptions: New Bisacodyl [Dulcolax] 5 mg PO DAILY PRN #10 tablet. PRN Reason: Constipation Simethicone 40 mg/0.6 ml Drops [Mylicon Drops] 40 mg PO PCHS PRN #30 ml PRN Reason: gas Ondansetron Odt [Zofran Odt] 4 mg PO Q8HR PRN #9 tab PRN Reason: Nausea HYDROcodone/APAP [[place] Elixir 7.5-325Mg/15Ml] 15 ml PO Q4HR PRN 3 Days #270 ml PRN Reason: Pain INSULIN ASPART (NovoLOG) [NovoLOG (formulary)] 0 unit SQ ACHS vial Continue Aspirin EC [Ecotrin Low Dose] 81 mg PO DAILY Acetaminophen [Tylenol Extra Strength] 1,000 mg PO Q6H PRN PRN Reason: Pain Discontinued Lisinopril [Zestril] 2.5 mg PO DAILY metFORMIN HCL [Glucophage] 1,000 mg PO BID #60 tab Insulin Lispro [humaLOG Kwikpen] 7 unit SQ AC-TID Insulin Glargine [Lantus] 43 unit SQ HS Atorvastatin Calcium [Lipitor] 20 mg PO HS Furosemide [Lasix] 10 mg PO DAILY Citalopram Hydrobromide [CeleXA] 20 mg PO HS Vitamin B Complex 1 cap PO DAILY Omeprazole 20 mg PO DAILY Discharge Medication List Aspirin EC [Ecotrin Low Dose] 81 mg PO DAILY 04/30/16 [History] Acetaminophen [Tylenol Extra Strength] 1,000 mg PO Q6H PRN 11/25/18 [History] Bisacodyl [Dulcolax] 5 mg PO DAILY PRN #10 tablet. 11/30/18 [Rx] HYDROcodone/APAP [[place] Elixir 7.5-325Mg/15Ml] 15 ml PO Q4HR PRN 3 Days #270 ml 11/30/18 [Rx] INSULIN ASPART (NovoLOG) [NovoLOG (formulary)] 0 unit SQ ACHS vial 11/30/18 [Rx] Ondansetron Odt [Zofran Odt] 4 mg PO Q8HR PRN #9 tab 11/30/18 [Rx] Simethicone 40 mg/0.6 ml Drops [Mylicon Drops] 40 mg PO PCHS PRN #30 ml 11/30/18 [Rx] Follow up Appointment(s)/Referral(s): [facility]ariatric Center,. [NON-STAFF] - 12/02/18 1:00 pm Patient Instructions/Handouts: Nutrition after Bariatric Surgery (DC), Laparoscopic Sleeve Gastrectomy (DC) Activity/Diet/Wound Care/Special Instructions: No lifting over 4 pounds in 4 weeks until Dec 30 Follow-up at the bariatric center. Check blood sugars at least twice daily. Hold diabetic medications of blood sugar is less than 150. May sponge bath. May shower. No bathtub soaks until December 09. Dressings to be discontinued by surgeon in the office. Liquid diet only. Start Stage II diet December 02 Discharge Disposition: HOME SELF-CARE
[2018-11-30] MEDS ORDERED: INSULIN ASPART (NovoLOG) 100 UNIT/ML VIAL SQ SCH (12:30)
[2018-11-30 14:01] VITALS: BMI 47.7
[2018-11-30 14:14] VITALS: BP 118/69; PULSE 57; RESP 16; TEMP 97.5
--- NOTE | 2018-11-30 20:07 | P.PN ---
Progress Note - Text Progress Note Date: 11/30/18 I personally contacted the patient's family at home and reports that he is resting comfortably. Change in prescription including increase omeprazole from 20-40 mg advised for gastric pouch care. Patient may follow up in the bariatric center tomorrow for any issues.
== END 2018-11-30 16:00 | disposition home or self-care (01) | DRG 621 ==
LOC: 2ORMAIN 06:16 → 4SSUR 13:03
PROVIDERS: ADMIT Surgery Plastic and Reconstructive Surgery; ATTEND Surgery Plastic and Reconstructive Surgery
PROC: 8E0W4CZ Robotic Assisted Procedure of Trunk Region, Percutaneous Endoscopic Approach (ICD-10-PCS; 2018-11-29)
PROC: 0DJ08ZZ Inspection of Upper Intestinal Tract, Via Natural or Artificial Opening Endoscopic (ICD-10-PCS; 2018-11-29)
PROC: 0DB64Z3 Excision of Stomach, Percutaneous Endoscopic Approach, Vertical (ICD-10-PCS; principal; 2018-11-29 07:30)
PROC: 0DNU4ZZ Release Omentum, Percutaneous Endoscopic Approach (ICD-10-PCS; 2018-11-29 07:30)
DX: E66.01 Morbid (severe) obesity due to excess calories (principal); Z68.42 Body mass index [BMI] 45.0-49.9, adult; I11.9 Hypertensive heart disease without heart failure; E11.9 Type 2 diabetes mellitus without complications; E78.5 Hyperlipidemia, unspecified; G47.33 Obstructive sleep apnea (adult) (pediatric); K21.9 Gastro-esophageal reflux disease without esophagitis; K66.0 Peritoneal adhesions (postprocedural) (postinfection); M17.0 Bilateral primary osteoarthritis of knee; M47.9 Spondylosis, unspecified; Z79.4 Long term (current) use of insulin; Z79.82 Long term (current) use of aspirin; Z79.899 Other long term (current) drug therapy; Z87.891 Personal history of nicotine dependence; Z87.442 Personal history of urinary calculi; Z85.47 Personal history of malignant neoplasm of testis; Z80.3 Family history of malignant neoplasm of breast; Z83.3 Family history of diabetes mellitus
CPT/HCPCS: 74240; 80051; 82310; 82565; 83735; 84100; 84520; 85025; 86850; 86900; 86901; 88307; 94640; 94760; 94762

== ENCOUNTER → 2018-12-02 | Outpatient (CLI) | payer MEDICAID ==
--- NOTE | 2018-12-02 09:30 | P.PN ---
Subjective Progress Note Date: 12/02/18 Patient is postop day 3 status post lysis of adhesions a sleeve gastrectomy, 11/29/2018. His blood sugars are 80s and 90s without any insulin or antidiabetic medications. His blood pressure has been excellent without any medications. He is tolerating liquids. No nausea or vomiting. His pain is well-controlled. Abdominal binder present. Dressing discontinued. No cellulitis PLAN: 1. May resume Celexa 2. Discontinue Lipitor including antihypertensive medications 3. Agree with discontinuing all diabetic medications as he is euglycemic 4. Wound care instructions were reviewed 5. Follow-up in the bariatric center next week for nurse visit 6. Follow-up in 2 weeks for physician visit
[2018-12-02 09:39] VITALS: BMI 44.6
[2018-12-02 10:21] VITALS: BP 116/60; PULSE 63; TEMP 98.4
== END | disposition home or self-care (01) ==
LOC: BARWHC3 08:50
PROVIDERS: ATTEND Surgery Plastic and Reconstructive Surgery
DX: Z48.815 Encounter for surgical aftercare following surgery on the digestive system (principal); E66.01 Morbid (severe) obesity due to excess calories; Z68.41 Body mass index [BMI] 40.0-44.9, adult; Z90.3 Acquired absence of stomach [part of]
CPT/HCPCS: 97802; 99211

== ENCOUNTER → 2018-12-08 | Outpatient (CLI) | payer MEDICAID ==
[2018-12-08 09:19] VITALS: BP 121/71; PULSE 48; TEMP 98.1; BMI 43.8
== END | disposition home or self-care (01) ==
LOC: BARWHC3 08:40
PROVIDERS: ATTEND Surgery Plastic and Reconstructive Surgery
DX: E66.01 Morbid (severe) obesity due to excess calories (principal)
CPT/HCPCS: 97803; 99211

== ENCOUNTER → 2018-12-13 | Outpatient (CLI) | payer MEDICAID ==
[2018-12-13 15:06] LABS: HCT 44.2 % (39.0-53.0); HGB 14.5 gm/dL (13.0-17.5); MCH 30.6 pg (25.0-35.0); MCHC 32.7 g/dL (31.0-37.0); MCV 93.4 fL (80.0-100.0); Mean Platelet Volume 8.9; Platelet Count 314 k/uL (150-450); RBC 4.73 m/uL (4.30-5.90); WBC 7.4 k/uL (3.8-10.6)
[2018-12-13 15:07] LABS: INR 1.1 (<1.2); Partial Thromboplastin Time 25.6 sec (22.0-30.0); Prothrombin Time 11.4 sec (9.0-12.0)
[2018-12-13 19:35] LABS: Iron Saturation 27.63 (15.00-50.00)
[2018-12-13 19:43] LABS: Vitamin D 25 Hydroxy 54.3 ng/mL (30.0-100.0)
[2018-12-13 19:46] LABS: African American GFR (CKD) 114.2 (60.0-200.0); Albumin 4.3 g/dL (3.80-4.90); Albumin/Globulin Ratio 1.87 (1.60-3.17); BUN/Creat Ratio 21.11 Ratio (12.00-20.00); Globulin 2.3 g/dL (1.6-3.3); LDL Cholesterol,Calculated 134.4 mg/dL (0.0-131.0); Magnesium 1.5 mg/dL (1.5-2.4); Phosphorus 2.9 mg/dL (2.4-5.1); Potassium 4.3 mmol/L (3.5-5.5); Total Bilirubin 0.8 mg/dL (0.2-1.2); Total Protein 6.6 g/dL (6.2-8.2); VLDL Calculation 17.6 mg/dL (5.00-40.00)
[2018-12-13 23:01] LABS: Hemoglobin A1C 8.1 % (4.0-6.0)
[2018-12-14 13:10] LABS: Zinc, Serum 83 ug/dL (60-130)
[2018-12-14 14:20] LABS: Vitamin A 52 ug/dL (38-106)
[2018-12-15 06:33] LABS: Vit B1(Thiamine) 68 ug/L (38-122)
== END | disposition home or self-care (01) ==
LOC: LABWHC1 14:07
PROVIDERS: ATTEND Surgery Plastic and Reconstructive Surgery
DX: E66.01 Morbid (severe) obesity due to excess calories (principal); E21.1 Secondary hyperparathyroidism, not elsewhere classified; E89.1 Postprocedural hypoinsulinemia; D50.9 Iron deficiency anemia, unspecified; E44.0 Moderate protein-calorie malnutrition; E55.9 Vitamin D deficiency, unspecified; K74.1 Hepatic sclerosis; N19 Unspecified kidney failure; K50.90 Crohn's disease, unspecified, without complications; E22.1 Hyperprolactinemia
CPT/HCPCS: 36415; 80053; 80061; 82306; 82525; 82607; 82728; 82746; 83036; 83540; 83550; 83735; 83970; 84100; 84134; 84255; 84425; 84443; 84590; 84630; 85027; 85610; 85730

== ENCOUNTER → 2018-12-13 | Outpatient (CLI) | payer MEDICAID ==
[2018-12-13 14:41] VITALS: BP 110/68; PULSE 80; TEMP 98.1; BMI 42.5
--- NOTE | 2018-12-13 14:45 | P.PN ---
Progress Note - Text Progress Note Date: 12/13/18 To whom it may concern: Clint Valle is under my general surgical care. He may return to work tomorrow, December 14 with a 4 pound lifting restriction through December 30, 2018. After December 30, he is off all restrictions. Regards, Betty Escobar MD FACS
--- NOTE | 2018-12-13 14:45 | P.PN ---
Subjective Progress Note Date: 12/13/18 DATE OF SERVICE: 12/13/2018 CHIEF COMPLAINT: Status post sleeve gastrectomy HISTORY OF PRESENT ILLNESS: Clint Valle is a 53-year-old male who is status post lysis of adhesions and sleeve gastrectomy, 11/29/2018. He is 2 weeks out. He is off all diabetic medication. He has moderate weight loss. No fevers or chills. He is eager to return to work. At height of 5 feet 9.5 inches, his ideal body weight is 168 pounds. He comes in 291 pounds from 306 pounds, 2 weeks ago. He has lost 15 pounds in 2 weeks. His highest weight was 365 pounds. His body mass index highest was 53.2 down to 42.5. He has lost 74 pounds lifetime. Percent excess weight loss is 37%. He is 123 pounds overweight. PHYSICAL EXAM: VITAL SIGNS: Height 5 foot 9.5 inches, weight 291 pounds. BMI 42.5 Vital Signs Temp 98.1 F 12/13/18 14:30 Pulse 80 12/13/18 14:30 Resp BP 110/68 12/13/18 14:30 Pulse Ox GENERAL: Well-developed in no acute distress. HEENT: No scleral icterus. Extraocular movements grossly intact. Hears conversational speech. No nasal drainage. NECK: Supple without lymphadenopathy. CHEST: Nonlabored respirations with equal bilateral excursions. CARDIOVASCULAR: Regular rate and regular rhythm. Distal 2+ pulses. ABDOMEN: Incisions are granulated without infection. MUSCULOSKELETAL: No clubbing, cyanosis. Gross strength 5/5 distal lower extremities. NEURO: No focal or lateralizing signs. Cranial nerves 2 through 12 grossly within normal limits. PSYCH: Appropriate affect. Alert and oriented to person, place and time. SKIN: Good skin turgor. Well perfused. ASSESSMENT: 1. Morbid obesity due to excess calories 2. Body mass index of 53.2 to 42.5 3. Osteoarthritis of the knees. 4. Osteoarthritis of the lower back. 5. Hypertensive heart disease. 6. Gastroesophageal reflux disease 7. Hyperlipidemia 8. Obstructive sleep apnea 9. Testicular cancer 10. Panniculitis 11. Diabetes type 2, insulin-dependent 12. Hepatomegaly 13. Kidney stones 14. Status post sleeve gastrectomy PLAN: 1. He may return to work and is cleared. 2. Recommend bariatric labs. 3. He is off diabetic medications 4. He had moderate weight loss 5. Overall, he has done well without infection. Objective - Vital Signs Vital signs: Vital Signs Temp 98.1 F 12/13/18 14:30 Pulse 80 12/13/18 14:30 Resp BP 110/68 12/13/18 14:30 Pulse Ox Intake & Output 12/12/18 12/13/18 12/13/18 18:59 06:59 18:59 Weight 132.449 kg
== END | disposition home or self-care (01) ==
LOC: BARWHC3 14:21
PROVIDERS: ATTEND Surgery Plastic and Reconstructive Surgery
DX: Z48.815 Encounter for surgical aftercare following surgery on the digestive system (principal); E66.01 Morbid (severe) obesity due to excess calories; M17.0 Bilateral primary osteoarthritis of knee; M47.816 Spondylosis without myelopathy or radiculopathy, lumbar region; I11.9 Hypertensive heart disease without heart failure; K21.9 Gastro-esophageal reflux disease without esophagitis; E78.5 Hyperlipidemia, unspecified; G47.33 Obstructive sleep apnea (adult) (pediatric); C62.90 Malignant neoplasm of unspecified testis, unspecified whether descended or undescended; M79.3 Panniculitis, unspecified; E11.9 Type 2 diabetes mellitus without complications; N20.0 Calculus of kidney; R16.0 Hepatomegaly, not elsewhere classified; Z68.41 Body mass index [BMI] 40.0-44.9, adult; Z98.84 Bariatric surgery status; Z79.4 Long term (current) use of insulin
CPT/HCPCS: 99211

== ENCOUNTER → 2018-12-29 | Outpatient (CLI) | payer MEDICAID ==
[2018-12-29 14:03] VITALS: BP 111/70; PULSE 50; TEMP 98.2; BMI 41.1
--- NOTE | 2018-12-29 15:13 | P.PN ---
Subjective Progress Note Date: 12/29/18 He is doing well. He is off all diabetic medications. He has created a social face book. He is now under 290 pounds in the past 15 to 20 years. He is doing well with his sleeve. He is active. He feels great. He has lost 60 pounds in 3 months. Hgb A1C reviewed. Objective - Vital Signs Vital signs: Vital Signs Temp 98.2 F 12/29/18 14:01 Pulse 50 L 12/29/18 14:01 Resp BP 111/70 12/29/18 14:01 Pulse Ox Intake & Output 12/28/18 12/29/18 12/29/18 18:59 06:59 18:59 Weight 128.367 kg
--- NOTE | 2018-12-29 15:19 | P.PN ---
Progress Note - Text Progress Note Date: 12/29/18 To whom it may concern: Clint Valle is under my general surgical care. He may return to work tomorrow without restrictions December 30, 2018. Regards, Betty Escobar MD FACS
== END | disposition home or self-care (01) ==
LOC: BARWHC3 13:34
PROVIDERS: ATTEND Surgery Plastic and Reconstructive Surgery
DX: Z48.815 Encounter for surgical aftercare following surgery on the digestive system (principal); Z98.84 Bariatric surgery status; E66.01 Morbid (severe) obesity due to excess calories; Z68.41 Body mass index [BMI] 40.0-44.9, adult
CPT/HCPCS: 97803; 99211

== ENCOUNTER → 2019-03-16 | Outpatient (CLI) | payer MEDICAID ==
[2019-03-16 14:11] VITALS: BP 119/59; PULSE 95; RESP 16; TEMP 97.4; BMI 36.9
--- NOTE | 2019-03-16 15:05 | P.PN ---
Subjective Progress Note Date: 03/16/19 Off CPAP machine. Off diabetic medications. He has lost 100 pounds. He is happy with his weight loss. He needs refill of his Omeprazole. Needs blood work. Highest weight is 365 pounds. Current weight of 254 pounds. He is keeping his measurement. He has much energy. Has over 20 pound pannus. Pannus nystatin. Objective - Vital Signs Vital signs: Vital Signs Temp 97.4 F L 03/16/19 14:09 Pulse 95 03/16/19 14:09 Resp 16 03/16/19 14:09 BP 119/59 03/16/19 14:09 Pulse Ox Intake & Output 03/15/19 03/16/19 03/16/19 18:59 06:59 18:59 Weight 115.212 kg
[2019-03-16 16:06] LABS: HCT 44.5 % (39.0-53.0); HGB 15.1 gm/dL (13.0-17.5); MCH 31.2 pg (25.0-35.0); MCHC 33.8 g/dL (31.0-37.0); MCV 92.1 fL (80.0-100.0); Mean Platelet Volume 8.3; Platelet Count 235 k/uL (150-450); RBC 4.83 m/uL (4.30-5.90); RDW 13.4 % (11.5-15.5); WBC 8.1 k/uL (3.8-10.6)
[2019-03-16 16:22] LABS: Prothrombin Time 10.3 sec (9.0-12.0)
[2019-03-16 16:23] LABS: Partial Thromboplastin Time 26.1 sec (22.0-30.0)
[2019-03-16 23:40] LABS: % Iron Saturation 13.4 (15.00-50.00); African American GFR (CKD) 134.9 (60.0-200.0); Albumin 4.2 g/dL (3.80-4.90); Albumin/Globulin Ratio 1.91 (1.60-3.17); BUN/Creat Ratio 41.67 Ratio (12.00-20.00); Calcium 9.7 mg/dL (8.7-10.3); Chol/HDL Ratio 4.18; Globulin 2.2 g/dL (1.6-3.3); LDL Cholesterol,Calculated 115.6 mg/dL (0.0-131.0); Magnesium 1.8 mg/dL (1.5-2.4); Potassium 4.2 mmol/L (3.5-5.5); Total Bilirubin 0.5 mg/dL (0.3-1.2); Total Protein 6.4 g/dL (6.2-8.2); VLDL Calculation 11.4 mg/dL (5.00-40.00)
[2019-03-16 23:47] LABS: Ferritin 200.2 ng/mL (22.0-322.0)
[2019-03-16 23:52] LABS: Folate, Serum 18.4 ng/mL
[2019-03-17 02:20] LABS: Hemoglobin A1C 5.3 % (4.0-6.0)
[2019-03-17 12:02] LABS: Zinc, Serum 75 ug/dL (60-130)
== END | disposition home or self-care (01) ==
LOC: BARWHC3 13:39
PROVIDERS: ATTEND Surgery Plastic and Reconstructive Surgery
DX: E66.01 Morbid (severe) obesity due to excess calories (principal); E21.1 Secondary hyperparathyroidism, not elsewhere classified; D50.9 Iron deficiency anemia, unspecified; K90.9 Intestinal malabsorption, unspecified; E55.9 Vitamin D deficiency, unspecified; K74.1 Hepatic sclerosis; N19 Unspecified kidney failure; K50.90 Crohn's disease, unspecified, without complications; Z68.36 Body mass index [BMI] 36.0-36.9, adult; Z99.89 Dependence on other enabling machines and devices; Z79.899 Other long term (current) drug therapy
CPT/HCPCS: 36415; 80053; 80061; 82306; 82525; 82607; 82728; 82746; 83036; 83540; 83550; 83735; 83970; 84100; 84134; 84255; 84425; 84443; 84590; 84630; 85027; 85610; 85730; 97803; 99211

== ENCOUNTER → 2019-06-08 | Outpatient (CLI) | payer MEDICAID ==
[2019-06-08 13:29] VITALS: BP 97/54; PULSE 63; TEMP 98.1; BMI 36.1
--- NOTE | 2019-06-08 14:30 | P.PN ---
Subjective Progress Note Date: 06/08/19 DATE OF SERVICE: 06/08/2019 CHIEF COMPLAINT: Status post sleeve gastrectomy HISTORY OF PRESENT ILLNESS: Clint Valle is a 54-year-old male who is status post lysis of adhesions and sleeve gastrectomy, 11/29/2018. He is 6 months out. He is 6 months out from his sleeve. No reports of abdominal pain. His personal goal is to get 190 pounds. He has lost 100 pounds in 6 months. His blood pressure is normal and off all blood pressure medications. He is no longer on any medications for diabetes. He is off CPAP machine with resolution of his sleep apnea. His knees feels fine. He is strength training including of the lower back. He reports he does have trouble with grooming with his pannus including with exercising. He goes to [employer] 3x per week. His protein intake is 100 g daily. At height of 5 feet 9.5 inches, his ideal body weight is 168 pounds. He comes in 247 pounds from 253 pounds, 3 months ago. He has lost 6 pounds in 2 months. His highest weight was 365 pounds. His body mass index highest was 53.2 down to 36.1. He has lost 118 pounds lifetime. Percent excess weight loss lifetime is 60 %. He is 79 pounds overweight. PHYSICAL EXAM: VITAL SIGNS: Height 5 foot 9.5 inches, weight 247 pounds. BMI 36.1 Vital Signs Temp 98.1 F 06/08/19 13:27 Pulse 63 06/08/19 13:27 Resp BP 97/54 06/08/19 13:27 Pulse Ox GENERAL: Well-developed in no acute distress. HEENT: No scleral icterus. Extraocular movements grossly intact. Hears conversational speech. No nasal drainage. NECK: Supple without lymphadenopathy. CHEST: Nonlabored respirations with equal bilateral excursions. CARDIOVASCULAR: Regular rate and regular rhythm. Distal 2+ pulses. ABDOMEN: Pannus of 10 to 15 pounds. Has panniculitis. Pannus 10 cm over pubis. Soft, nontender, nondistended. MUSCULOSKELETAL: No clubbing, cyanosis. NEURO: No focal or lateralizing signs. Cranial nerves 2 through 12 grossly within normal limits. PSYCH: Appropriate affect. Alert and oriented to person, place and time. SKIN: Good skin turgor. Well perfused. LABS: Reviewed with low iron. Hgb A1c now normal range. ASSESSMENT: 1. Morbid obesity due to excess calories 2. Body mass index of 53.2 to 36.1 3. Osteoarthritis of the knees. 4. Osteoarthritis of the lower back. 5. Hypertensive heart disease. 6. Gastroesophageal reflux disease 7. Hyperlipidemia 8. Obstructive sleep apnea 9. Testicular cancer 10. Panniculitis 11. Diabetes type 2, insulin-dependent, resolved 12. Hepatomegaly 13. Kidney stones 14. Status post sleeve gastrectomy 15. Iron deficiency PLAN: 1. Recommend bariatric labs 2. Nystatin powder for panniculitis prescribed. 3. Obtain pictures of severity of his pannus and panniculitis. Objective - Vital Signs Vital signs: Vital Signs Temp 98.1 F 06/08/19 13:27 Pulse 63 06/08/19 13:27 Resp BP 97/54 06/08/19 13:27 Pulse Ox Intake & Output 06/07/19 06/08/19 06/08/19 18:59 06:59 18:59 Weight 112.491 kg
== END | disposition home or self-care (01) ==
LOC: BARWHC3 13:01
PROVIDERS: ATTEND Surgery Plastic and Reconstructive Surgery
DX: Z48.815 Encounter for surgical aftercare following surgery on the digestive system (principal); E66.01 Morbid (severe) obesity due to excess calories; M17.0 Bilateral primary osteoarthritis of knee; I11.9 Hypertensive heart disease without heart failure; K21.9 Gastro-esophageal reflux disease without esophagitis; E78.5 Hyperlipidemia, unspecified; G47.33 Obstructive sleep apnea (adult) (pediatric); C62.90 Malignant neoplasm of unspecified testis, unspecified whether descended or undescended; M79.3 Panniculitis, unspecified; R16.0 Hepatomegaly, not elsewhere classified; N20.0 Calculus of kidney; E61.1 Iron deficiency; Z68.36 Body mass index [BMI] 36.0-36.9, adult; Z98.84 Bariatric surgery status; Z79.899 Other long term (current) drug therapy
CPT/HCPCS: 97803; 99211

== ENCOUNTER → 2019-08-31 | Outpatient (CLI) | payer MEDICAID ==
[2019-08-31 10:23] LABS: HGB 15.3 gm/dL (13.0-17.5); MCH 31.3 pg (25.0-35.0); MCV 92.1 fL (80.0-100.0); Mean Platelet Volume 8.6; Platelet Count 233 k/uL (150-450); RBC 4.89 m/uL (4.30-5.90); RDW 12.9 % (11.5-15.5); WBC 6.9 k/uL (3.8-10.6)
[2019-08-31 10:33] LABS: Prothrombin Time 10.1 sec (9.0-12.0)
[2019-08-31 15:55] LABS: % Iron Saturation 33.23 (15.00-50.00); Albumin 3.8 g/dL (3.80-4.90); Albumin/Globulin Ratio 2.11 (1.60-3.17); BUN/Creat Ratio 27.5 Ratio (12.00-20.00); Calcium 9.2 mg/dL (8.7-10.3); Chol/HDL Ratio 3.56; Globulin 1.8 g/dL (1.6-3.3); LDL Cholesterol,Calculated 119.2 mg/dL (0.0-131.0); Magnesium 1.6 mg/dL (1.5-2.4); Non-African American GFR(CKD) 102.7 (60.0-200.0); Phosphorus 3.8 mg/dL (2.4-5.1); Potassium 4.1 mmol/L (3.5-5.5); Total Bilirubin 0.9 mg/dL (0.3-1.2); Total Protein 5.6 g/dL (6.2-8.2); VLDL Calculation 13.8 mg/dL (5.00-40.00)
[2019-08-31 16:06] LABS: Ferritin 113.4 ng/mL (22.0-322.0)
[2019-08-31 16:09] LABS: Folate, Serum 19.2 ng/mL
[2019-09-01 13:32] LABS: Zinc, Serum 78 ug/dL (60-130)
[2019-09-02 08:27] LABS: Vit B1(Thiamine) 65 ug/L (38-122)
== END | disposition home or self-care (01) ==
LOC: LABWHC1 09:44
PROVIDERS: ATTEND Surgery Plastic and Reconstructive Surgery
DX: E21.1 Secondary hyperparathyroidism, not elsewhere classified (principal); E89.1 Postprocedural hypoinsulinemia; D50.9 Iron deficiency anemia, unspecified; K90.9 Intestinal malabsorption, unspecified; E55.9 Vitamin D deficiency, unspecified; K74.1 Hepatic sclerosis; N19 Unspecified kidney failure; K50.90 Crohn's disease, unspecified, without complications; E66.01 Morbid (severe) obesity due to excess calories
CPT/HCPCS: 36415; 80053; 80061; 82306; 82525; 82607; 82728; 82746; 83036; 83540; 83550; 83735; 83970; 84100; 84134; 84255; 84425; 84443; 84590; 84630; 85027; 85610; 85730

== ENCOUNTER → 2019-08-31 | Outpatient (CLI) | payer MEDICAID ==
[2019-08-31 13:33] VITALS: BP 116/71; PULSE 53; RESP 16; TEMP 97.2; BMI 38.1
--- NOTE | 2019-08-31 14:00 | P.PN ---
Subjective Progress Note Date: 08/31/19 DATE OF SERVICE: 08/31/2019 CHIEF COMPLAINT: Status post sleeve gastrectomy HISTORY OF PRESENT ILLNESS: Clint Valle is a 54-year-old male who is status post lysis of adhesions and sleeve gastrectomy, 11/29/2018. He is over 9 months out. He comes in with weight gain from 248 to 262 in 3 months. No ga stroesophageal reflux disease. He has changed his diet where he is eating more carbs due to stay at home order for COVID-19 pandemic. He still walks 7 miles a day. He is saddened by his weight gain. He taking multivitamins. At height of 5 feet 9.5 inches, his ideal body weight is 168 pounds. He comes in 261 pounds from 247 pounds, 3 months. He has gained 14 pounds in 3 months. His highest weight was 365 pounds. His body mass index highest was 53.2 down to 38.1. He has lost 104 pounds lifetime. Percent excess weight loss lifetime is 53 %. He is 93 pounds overweight. PHYSICAL EXAM: VITAL SIGNS: Height 5 foot 9.5 inches, weight 261 pounds. BMI 38.1 Vital Signs Temp 97.2 F L 08/31/19 13:31 Pulse 53 L 08/31/19 13:31 Resp 16 08/31/19 13:31 BP 116/71 08/31/19 13:31 Pulse Ox Intake & Output 08/31/19 09/01/19 09/01/19 18:59 06:59 18:59 Weight 118.841 kg GENERAL: Well-developed in no acute distress. HEENT: No scleral icterus. Extraocular movements grossly intact. Hears conversational speech. No nasal drainage. NECK: Supple without lymphadenopathy. CHEST: Nonlabored respirations with equal bilateral excursions. CARDIOVASCULAR: Regular rate and regular rhythm. Distal 2+ pulses. ABDOMEN: Moderate sized pannus. No peritonitis MUSCULOSKELETAL: No clubbing, cyanosis. NEURO: No focal or lateralizing signs. Cranial nerves 2 through 12 grossly within normal limits. PSYCH: Appropriate affect. Alert and oriented to person, place and time. SKIN: Good skin turgor. Well perfused. ASSESSMENT: 1. Morbid obesity due to excess calories 2. Body mass index of 53.2 to 38.1 3. Osteoarthritis of the knees. 4. Osteoarthritis of the lower back. 5. Hypertensive heart disease. 6. Gastroesophageal reflux disease 7. Hyperlipidemia 8. Obstructive sleep apnea 9. Testicular cancer 10. Panniculitis 11. Diabetes type 2, insulin-dependent, resolved 12. Hepatomegaly 13. Kidney stones 14. Status post sleeve gastrectomy 15. Iron deficiency 16. Dietary surveillance and management PLAN: 1. Recommend bariatric labs 2. Recommend dietary food logs to review caloric intake 3. Recommend follow up November 2019. Objective - Vital Signs Vital signs: Vital Signs Temp 97.2 F L 08/31/19 13:31 Pulse 53 L 08/31/19 13:31 Resp 16 08/31/19 13:31 BP 116/71 08/31/19 13:31 Pulse Ox Intake & Output 08/30/19 08/31/19 08/31/19 18:59 06:59 18:59 Weight 118.841 kg
== END | disposition home or self-care (01) ==
LOC: BARWHC3 13:16
PROVIDERS: ATTEND Surgery Plastic and Reconstructive Surgery
DX: E66.01 Morbid (severe) obesity due to excess calories (principal); Z68.38 Body mass index [BMI] 38.0-38.9, adult; M17.9 Osteoarthritis of knee, unspecified; M47.816 Spondylosis without myelopathy or radiculopathy, lumbar region; I11.9 Hypertensive heart disease without heart failure; K21.9 Gastro-esophageal reflux disease without esophagitis; E78.5 Hyperlipidemia, unspecified; G47.33 Obstructive sleep apnea (adult) (pediatric); C62.90 Malignant neoplasm of unspecified testis, unspecified whether descended or undescended; M79.3 Panniculitis, unspecified; R16.0 Hepatomegaly, not elsewhere classified; N20.0 Calculus of kidney; Z98.84 Bariatric surgery status; E61.1 Iron deficiency; Z71.3 Dietary counseling and surveillance
CPT/HCPCS: 97803; 99211

== ENCOUNTER → 2020-01-03 | Outpatient (CLI) | payer MEDICAID ==
[2020-01-03 09:45] LABS: HCT 40.9 % (39.0-53.0); HGB 13.5 gm/dL (13.0-17.5); MCH 30.7 pg (25.0-35.0); Mean Platelet Volume 8.9; Platelet Count 198 k/uL (150-450); RBC 4.39 m/uL (4.30-5.90); RDW 13.1 % (11.5-15.5); WBC 5.6 k/uL (3.8-10.6)
[2020-01-03 16:47] LABS: INR 0.96 (0.90-1.11); Partial Thromboplastin Time 27.7 sec (24.7-29.9); Prothrombin Time 10.3 sec (9.9-11.9)
[2020-01-03 18:35] LABS: % Iron Saturation 40.69 (15.00-50.00); African American GFR (CKD) 113.4 (60.0-200.0); Albumin 3.8 g/dL (3.80-4.90); Albumin/Globulin Ratio 2.11 (1.60-3.17); Anion Gap 7.8 mmol/L (4.00-12.00); BUN/Creat Ratio 25.56 Ratio (12.00-20.00); Calcium 8.9 mg/dL (8.7-10.3); Carbon Dioxide 28.2 mmol/L (21.6-31.8); Chol/HDL Ratio 3.82; Globulin 1.8 g/dL (1.6-3.3); Magnesium 1.5 mg/dL (1.5-2.4); Non-African American GFR(CKD) 97.9 (60.0-200.0); Phosphorus 3.9 mg/dL (2.4-5.1); Potassium 4.5 mmol/L (3.5-5.5); Total Bilirubin 0.9 mg/dL (0.2-1.2); Total Protein 5.6 g/dL (6.2-8.2)
[2020-01-03 18:46] LABS: Folate, Serum 18.3 ng/mL
[2020-01-03 20:21] LABS: Hemoglobin A1C 5.2 % (4.0-6.0)
[2020-01-04 13:54] LABS: Zinc, Serum 66 ug/dL (60-130)
[2020-01-04 13:55] LABS: Vitamin A 57 ug/dL (38-106)
[2020-01-05 06:35] LABS: Vit B1(Thiamine) 62 ug/L (38-122)
[2020-01-06 02:49] LABS: Selenium 102 mcg/L (63-160)
== END | disposition home or self-care (01) ==
LOC: LABWHC1 08:51
PROVIDERS: ATTEND Surgery Plastic and Reconstructive Surgery
DX: D50.9 Iron deficiency anemia, unspecified (principal); E21.1 Secondary hyperparathyroidism, not elsewhere classified; E66.01 Morbid (severe) obesity due to excess calories; K90.9 Intestinal malabsorption, unspecified; E44.0 Moderate protein-calorie malnutrition; E55.9 Vitamin D deficiency, unspecified; K74.1 Hepatic sclerosis; N19 Unspecified kidney failure; K50.90 Crohn's disease, unspecified, without complications; E89.1 Postprocedural hypoinsulinemia
CPT/HCPCS: 36415; 80053; 80061; 82306; 82525; 82607; 82728; 82746; 83036; 83540; 83550; 83735; 83970; 84100; 84134; 84255; 84425; 84443; 84590; 84630; 85027; 85610; 85730

== ENCOUNTER → 2020-02-29 | Outpatient (CLI) | payer MEDICAID ==
--- NOTE | 2020-02-29 14:26 | CT ---
EXAMINATION TYPE: CT abdomen pelvis wo con DATE OF EXAM: 02/29/2020 COMPARISON: 08/30/2018 HISTORY: Diverticulitis CT DLP: 1214.6 mGycm Examination of the solid and hollow viscera is limited given the lack of contrast. FINDINGS: LUNG BASES: No evidence for nodule. No evidence for infiltrate. LIVER/GB: The gallbladder is unremarkable. No space-occupying hepatic lesion. PANCREAS: No pancreatic mass identified. No inflammatory process seen. SPLEEN: No evidence for splenomegaly. No intrasplenic lesions seen. ADRENALS: No adrenal nodules identified. No evidence for thickening. KIDNEYS: No evidence for renal mass. No nephrolithiasis. No hydronephrosis. BOWEL: Gastric sleeve changes identified. Appendix has a normal appearance. No evidence of bowel obst ruction. No inflammatory process. Mild hazy density within the small bowel mesentery may reflect mese nteric panniculitis. Lymph nodes: No evidence for adenopathy greater than 1 cm. Abdominal aorta: Atheromatous changes seen. No evidence for aneurysm. Genital organs: No significant abnormality. Other: Anterior abdominal wall hernia repair. There are retroperitoneal surgical clips from prior dis section. IMPRESSION: 1.Mild hazy density within the small bowel mesentery may reflect mesenteric panniculitis. 2. No acute intra-abdominal process identified.
== END | disposition home or self-care (01) ==
LOC: RADCTMAIN 13:51
PROVIDERS: ATTEND Surgery Plastic and Reconstructive Surgery
DX: K63.89 Other specified diseases of intestine (principal)
CPT/HCPCS: 74176

== ENCOUNTER → 2020-03-07 | Outpatient (CLI) | payer MEDICAID ==
[2020-03-07 14:47] VITALS: BP 127/72; PULSE 80; RESP 18; TEMP 98.4; BMI 38.0
--- NOTE | 2020-03-07 15:18 | P.PN ---
Subjective Progress Note Date: 03/07/20 DATE OF SERVICE: 03/07/2020 CHIEF COMPLAINT: Status post sleeve gastrectomy HISTORY OF PRESENT ILLNESS: Clint Valle is a 54-year-old male who is status post sleeve gastrectomy, 11/29/2018. He is 1 year out. He has trouble with weight loss due to snacking. Recently, he has lost weight. He has severe panniculitis with skin breakdown. He is looking for more weight loss. He had cellulitis of the pannus for which he brought pictures. He reports moderate pain as a result of his panniculitis. At height of 5 feet 9.5 inches, his ideal body weight is 168 pounds. He comes in 260 pounds from 266 pounds, 2 months ago. He has lost 6 pounds in 2 months. His highest weight was 365 pounds. His body mass index highest was 53.2 down to 38.0. He has lost 105 pounds lifetime. Percent excess weight loss lifetime is 53 %. He is 92 pounds overweight. PHYSICAL EXAM: VITAL SIGNS: Height 5 foot 9.5 inches, weight 260 pounds. BMI 38.0 Vital Signs Temp 98.4 F 03/07/20 14:39 Pulse 80 03/07/20 14:39 Resp 18 03/07/20 14:39 BP 127/72 03/07/20 14:39 Pulse Ox GENERAL: Well-developed in no acute distress. HEENT: No scleral icterus. Extraocular movements grossly intact. Hears conversational speech. No nasal drainage. NECK: Supple without lymphadenopathy. CHEST: Nonlabored respirations with equal bilateral excursions. CARDIOVASCULAR: Regular rate and regular rhythm. Distal 2+ pulses. ABDOMEN: Pannus over 10 to 20 pounds with moderate panniculitis. Grade 2 panniculus. No peritonitis MUSCULOSKELETAL: No clubbing, cyanosis. NEURO: No focal or lateralizing signs. Cranial nerves 2 through 12 grossly within normal limits. PSYCH: Appropriate affect. Alert and oriented to person, place and time. SKIN: Good skin turgor. Well perfused. ASSESSMENT: 1. Morbid obesity due to excess calories 2. Body mass index of 53.2 to 38.0 3. Osteoarthritis of the knees. 4. Osteoarthritis of the lower back. 5. Hypertensive heart disease. 6. Gastroesophageal reflux disease 7. Hyperlipidemia 8. Obstructive sleep apnea 9. Testicular cancer 10. Panniculitis 11. Diabetes type 2, insulin-dependent, resolved 12. Hepatomegaly 13. Kidney stones 14. Status post sleeve gastrectomy 15. Iron deficiency 16. Dietary surveillance and management PLAN: 1. Recommend continued weight loss prior to panniculectomy as his weight loss is not stable. 2. Recommend treatment of panniculitis with drapery seamstress. Objective - Vital Signs Vital signs: Vital Signs Temp 98.4 F 03/07/20 14:39 Pulse 80 03/07/20 14:39 Resp 18 03/07/20 14:39 BP 127/72 03/07/20 14:39 Pulse Ox Intake & Output 03/06/20 03/07/20 03/07/20 18:59 06:59 18:59 Weight 118.388 kg
== END | disposition home or self-care (01) ==
LOC: BARWHC3 14:04
PROVIDERS: ATTEND Surgery Plastic and Reconstructive Surgery
DX: E66.01 Morbid (severe) obesity due to excess calories (principal); Z68.38 Body mass index [BMI] 38.0-38.9, adult; M17.0 Bilateral primary osteoarthritis of knee; M47.9 Spondylosis, unspecified; I11.9 Hypertensive heart disease without heart failure; K21.9 Gastro-esophageal reflux disease without esophagitis; E78.5 Hyperlipidemia, unspecified; G47.33 Obstructive sleep apnea (adult) (pediatric); N20.0 Calculus of kidney; Z98.84 Bariatric surgery status; Z71.3 Dietary counseling and surveillance; E61.1 Iron deficiency; C62.90 Malignant neoplasm of unspecified testis, unspecified whether descended or undescended; M79.3 Panniculitis, unspecified; R16.0 Hepatomegaly, not elsewhere classified
CPT/HCPCS: 99211

== ENCOUNTER → 2020-05-30 | Outpatient (CLI) | payer MEDICAID ==
[2020-05-30 14:17] VITALS: BP 122/81; PULSE 70; RESP 18; TEMP 98.2; BMI 39.7
--- NOTE | 2020-05-30 14:44 | P.PN ---
Subjective Progress Note Date: 05/30/20 DATE OF SERVICE: 05/30/2020 CHIEF COMPLAINT: Status post sleeve gastrectomy HISTORY OF PRESENT ILLNESS: Clint Valle is a 55-year-old male who is status post sleeve gastrectomy, 11/29/2018. He is over one year out. He has struggled with weight regain within the first year of this operation. He is not keeping a food diary journal. He has gained weight 12 pounds in 3 months. He was in [place] for his anniversary. He is looking into panniculectomy for chronic panniculitis. He reports trouble with grooming and fitting of his clothes. He has persistent lower back pain secondary to the size of his size was pannus. He has been using nystatin powder for over 6 months with chronic symptoms. At height of 5 feet 9.5 inches, his ideal body weight is 168 pounds. He comes in 272 pounds from 260 pounds, 3 months ago. He has gained 12 pounds in 3 months. His highest weight was 365 pounds. His body mass index highest was 53.2 down to 39.7. He has lost 93 pounds lifetime. Percent excess weight loss lifetime is 47 %. He is 104 pounds overweight. PHYSICAL EXAM: VITAL SIGNS: Height 5 foot 9.5 inches, weight 272 pounds. BMI 39.7 Vital Signs Temp 98.2 F 05/30/20 14:11 Pulse 70 05/30/20 14:11 Resp 18 05/30/20 14:11 BP 122/81 05/30/20 14:11 Pulse Ox GENERAL: Well-developed in no acute distress. HEENT: No scleral icterus. Extraocular movements grossly intact. Hears conversational speech. No nasal drainage. NECK: Supple without lymphadenopathy. CHEST: Nonlabored respirations with equal bilateral excursions. CARDIOVASCULAR: Regular rate and regular rhythm. Distal 2+ pulses. ABDOMEN: Nontender. Nondistended. Pannus is over 20 pounds. Grade 3 pann iculus. MUSCULOSKELETAL: No clubbing, cyanosis. NEURO: No focal or lateralizing signs. Cranial nerves 2 through 12 grossly within normal limits. PSYCH: Appropriate affect. Alert and oriented to person, place and time. SKIN: Good skin turgor. Well perfused. ASSESSMENT: 1. Morbid obesity due to excess calories 2. Body mass index of 53.2 to 39.7 3. Osteoarthritis of the knees. 4. Osteoarthritis of the lower back. 5. Hypertensive heart disease. 6. Gastroesophageal reflux disease 7. Hyperlipidemia 8. Obstructive sleep apnea 9. Testicular cancer 10. Panniculitis 11. Diabetes type 2, insulin-dependent, resolved 12. Hepatomegaly 13. Kidney stones 14. Status post sleeve gastrectomy 15. Iron deficiency 16. Dietary surveillance and management 17. Weight gain following bariatric procedure. PLAN: 1. Recommend food diary journal. 2. He is looking into panniculectomy. Referral to truck car and bus cleaner for chronic panniculitis. 3. Recommend nystatin powder. Objective - Vital Signs Vital signs: Vital Signs Temp 98.2 F 05/30/20 14:11 Pulse 70 05/30/20 14:11 Resp 18 05/30/20 14:11 BP 122/81 05/30/20 14:11 Pulse Ox Intake & Output 05/29/20 05/30/20 05/30/20 18:59 06:59 18:59 Weight 123.831 kg
== END | disposition home or self-care (01) ==
LOC: BARWHC3 13:40
PROVIDERS: ATTEND Surgery Plastic and Reconstructive Surgery
DX: E66.01 Morbid (severe) obesity due to excess calories (principal); K21.9 Gastro-esophageal reflux disease without esophagitis; M17.0 Bilateral primary osteoarthritis of knee; E11.9 Type 2 diabetes mellitus without complications; M79.3 Panniculitis, unspecified; I11.9 Hypertensive heart disease without heart failure; E78.5 Hyperlipidemia, unspecified; C62.90 Malignant neoplasm of unspecified testis, unspecified whether descended or undescended; G47.33 Obstructive sleep apnea (adult) (pediatric); R16.0 Hepatomegaly, not elsewhere classified; N20.0 Calculus of kidney; D50.9 Iron deficiency anemia, unspecified; Z79.4 Long term (current) use of insulin; Z98.84 Bariatric surgery status; Z71.3 Dietary counseling and surveillance; Z68.39 Body mass index [BMI] 39.0-39.9, adult
CPT/HCPCS: 99211

== ENCOUNTER → 2020-10-08 | Outpatient (CLI) | payer MEDICAID ==
[2020-10-08 19:17] LABS: HCT 42.9 % (39.6-50.0); HGB 14.5 g/dL (13.0-17.0); MCH 30.8 pg (27.0-32.0); MCHC 33.8 g/dL (32.0-37.0); MCV 91.1 fL (80.0-97.0); Mean Platelet Volume 11.8 fL (9.5-12.2); Platelet Count 269 X 10*3/uL (140-440); RBC 4.71 X 10*6/uL (4.40-5.60); RDW 12.9 % (11.5-14.5); WBC 7.06 X 10*3/uL (4.50-10.00)
[2020-10-08 19:22] LABS: African American GFR (CKD) 118.2 (60.0-200.0); Albumin 3.8 g/dL (3.80-4.90); Anion Gap 7.4 mmol/L (4.00-12.00); Calcium 9.2 mg/dL (8.7-10.3); Carbon Dioxide 27.6 mmol/L (21.6-31.8); Chol/HDL Ratio 3.4; Globulin 1.9 g/dL (1.6-3.3); LDL Cholesterol,Calculated 106.6 mg/dL (0.0-131.0); Potassium 4.4 mmol/L (3.5-5.5); Total Bilirubin 0.6 mg/dL (0.2-1.2); Total Protein 5.7 g/dL (6.2-8.2); VLDL Calculation 13.4 mg/dL (5.00-40.00)
[2020-10-08 19:51] LABS: Prostate Specific Antigen 0.3 ng/mL (0.0-3.5)
== END | disposition home or self-care (01) ==
LOC: LABWHC1 13:51
PROVIDERS: ATTEND Family Medicine
DX: Z00.01 Encounter for general adult medical examination with abnormal findings (principal)
CPT/HCPCS: 36415; 80053; 80061; 84153; 85027

== ENCOUNTER → 2021-11-27 | Outpatient (CLI) | payer MEDICAID ==
[2021-11-27 17:10] LABS: ALT 29 U/L (10-49); AST 26 U/L (14-35); African American GFR (CKD) 111.8 (60.0-200.0); Albumin 3.9 g/dL (3.8-4.9); Albumin/Globulin Ratio 1.77 (1.60-3.17); Alkaline Phosphatase 61 U/L (41-126); BUN/Creat Ratio 18.78 Ratio (12.00-20.00); Blood Urea Nitrogen 16.9 mg/dL (9.0-27.0); Calcium 9.1 mg/dL (8.7-10.3); Chloride 104 mmol/L (96-109); Chol/HDL Ratio 4.07 Ratio; Globulin 2.2 g/dL (1.6-3.3); Glucose 150 mg/dL (70-110); LDL Cholesterol,Calculated 119.9 mg/dL (0.0-131.0); Non-African American GFR(CKD) 96.5 (60.0-200.0); Potassium 4.1 mmol/L (3.5-5.5); Sodium 141 mmol/L (135-145); Total Protein 6.1 g/dL (6.2-8.2); VLDL Calculation 18.06 mg/dL (5.00-40.00)
[2021-11-27 17:23] LABS: HCT 42.4 % (39.6-50.0); HGB 14.1 g/dL (13.0-17.0); MCH 30.1 pg (27.0-32.0); MCHC 33.3 g/dL (32.0-37.0); MCV 90.4 fL (80.0-97.0); NRBC Per 100 WBC 0 /100 WBCS (0.0-0.0); Platelet Count 235 X 10*3/uL (140-440); RBC 4.69 X 10*6/uL (4.40-5.60); RDW 13.2 % (11.5-14.5); WBC 7.25 X 10*3/uL (4.50-10.00)
== END | disposition home or self-care (01) ==
LOC: LABWHC1 08:56
PROVIDERS: ATTEND Family Medicine
DX: Z00.01 Encounter for general adult medical examination with abnormal findings (principal)
CPT/HCPCS: 36415; 80053; 80061; 84153; 85027

== ENCOUNTER → 2022-06-03 | Outpatient (CLI) | payer MEDICAID ==
[2022-06-03 10:17] LABS: Partial Thromboplastin Time 23.9 sec (22.0-30.0); Prothrombin Time 10.5 sec (9.0-12.0)
[2022-06-03 14:45] LABS: HCT 43.1 % (39.6-50.0); MCH 29.1 pg (27.0-32.0); MCHC 32.5 g/dL (32.0-37.0); MCV 89.6 fL (80.0-97.0); Mean Platelet Volume 11.3 fL (9.5-12.2); NRBC Per 100 WBC 0 /100 WBCS (0.0-0.0); Platelet Count 276 X 10*3/uL (140-440); RBC 4.81 X 10*6/uL (4.40-5.60); RDW 14.1 % (11.5-14.5); WBC 7.54 X 10*3/uL (4.50-10.00)
[2022-06-04 14:16] LABS: Zinc, Serum 59 ug/dL (60-130)
[2022-06-05 05:31] LABS: Chol/HDL Ratio 4.16 Ratio; LDL Cholesterol,Calculated 115.3 mg/dL (0.0-131.0); VLDL Calculation 19.86 mg/dL (5.00-40.00)
[2022-06-05 07:59] LABS: % Iron Saturation 48.33 (15.00-50.00); ALT 31 U/L (10-49); AST 29 U/L (14-35); African American GFR (CKD) 97.8 (60.0-200.0); Albumin 3.8 g/dL (3.8-4.9); Albumin/Globulin Ratio 1.73 (1.60-3.17); Alkaline Phosphatase 56 U/L (41-126); Blood Urea Nitrogen 17.3 mg/dL (9.0-27.0); Calcium 9.1 mg/dL (8.7-10.3); Carbon Dioxide 22.8 mmol/L (20.0-27.5); Chloride 103 mmol/L (96-109); Globulin 2.2 g/dL (1.6-3.3); Glucose 143 mg/dL (70-110); Iron 205 ug/dL (65-175); Magnesium 1.7 mg/dL (1.5-2.4); Non-African American GFR(CKD) 84.4 (60.0-200.0); Phosphorus 3.1 mg/dL (2.4-5.1); Potassium 4.5 mmol/L (3.5-5.5); Sodium 141 mmol/L (135-145); Total Iron Binding Capacity 424 ug/dL (228-460)
== END | disposition home or self-care (01) ==
LOC: LABWHC1 09:11
PROVIDERS: ATTEND Family Medicine
DX: E66.01 Morbid (severe) obesity due to excess calories (principal); D50.8 Other iron deficiency anemias; K91.2 Postsurgical malabsorption, not elsewhere classified; E44.0 Moderate protein-calorie malnutrition; E45 Retarded development following protein-calorie malnutrition; E55.9 Vitamin D deficiency, unspecified; K74.1 Hepatic sclerosis; N19 Unspecified kidney failure; T56.894A Toxic effect of other metals, undetermined, initial encounter; K50.90 Crohn's disease, unspecified, without complications; Z90.3 Acquired absence of stomach [part of]
CPT/HCPCS: 36415; 80053; 80061; 82306; 82525; 82607; 82746; 83036; 83540; 83550; 83735; 83970; 84100; 84134; 84255; 84425; 84443; 84590; 84630; 85027; 85610; 85730